=== PATIENT | female | born 1980 | race Caucasian/White ===

== ENCOUNTER 2025-02-17 11:01 | Outpatient (OUT) | payer MEDICARE, SELFPAY ==
--- OUTSIDE RECORDS SUMMARY | 2024-07-17 12:05 | XMS_ITS ---
Author Organization [facility] Servic es Address [address] [place] [address] Care Team Providers Care Database Modeler Name Role Phone Ruthie Samuel Primary Care Provider [phone] Dr. Toñito Lizarraga [facility] [phone] REASON FOR VISIT FILLING Encounters Encounter Location Date Provider Diagnosis [facility] [address] [place] [address] 07/17/2024 Toñito Lizarraga Plan Of Treatment No Information Progress Notes * SKYE SALESOB:05/1979 (45 yo F)Acc No.[id number]:07/17/2024 Patient: Danielle HILTONMILANRAYMONDY Provider: Rm Lizarraga DDS :1980 A ge:44 Y S ex:Female Date:07/17/2024 Address:[facility] [address], [place] [id number] Pcp:Ruthie Samuel Subjective: * Chief Complaints: * 1 . FILLING. * Medical History: Objective: * Vitals: Assessment: Plan: * Treatment: * Images: * Electronic signature of Dr. Toñito Lizarraga , DMD on 02/17/2025 at 11:13 AM EDT Sign off status: Pending * Provider: Rm Lizarraga DDS Date: 07/17/2024 Generated for Printi ng/Faxing/eTransmitting on: 1 11:13 AM EDT
--- OUTSIDE RECORDS SUMMARY | 2024-08-14 07:50 | XMS_ITS ---
Author Organization [facility] Servic es Address [address] [place] [address] Care Team Providers Care Craps Dealer Name Role Phone Ruthie Samuel Primary Care Provider [phone] Dr. Toñito Lizarraga [facility] [phone] REASON FOR VISIT FILLING Encounters Encounter Location Date Provider Diagnosis [facility] Services [address] [place] [address] 08/14/2024 Toñito Lizarraga Plan Of Treatment No Information Progress Notes * SKYE SALESOB:05/1979 (45 yo F)Acc No.[id number]:08/14/2024 Patient: Danielle HILTONMILANRAYMONDY Provider: Rm Lizarraga DDS :1980 A ge:44 Y S ex:Female Date:08/14/2024 Address:[facility] [address], [id number] Pcp:Ruthie Samuel Subjective: * Chief Complaints: * 1 . FILLING. * Medical History: Objective: * Vitals: Assessment: Plan: * Treatment: * Images: * Electronic signature of Dr. Toñito Lizarraga , DMD on 02/17/2025 at 11:13 AM EDT Sign off status: Pending * Provider: Rm Lizarraga DDS Date: 08/14/2024 Generated for Printi ng/Faxing/eTransmitting on: 1 11:13 AM EDT
--- OUTSIDE RECORDS SUMMARY | 2024-10-15 11:00 | XMS_ITS ---
Author Organization [facility] Servic es Address [address] [place] [address] Care Team Providers Care Manager Oracle Name Role Phone Ruthie Samuel Primary Care Provider Komal Russell [phone] REASON FOR VISIT PROPHY Encounters Encounter Location Date Provider Diagnosis [facility] Services [address] [place] [address] 10/15/2024 Komal Russell Plan Of Treatment No Information Progress Notes * SKYE SALESOB:05/1979 (45 yo F)Acc No.[id number]:10/15/2024 Patient: Danielle ARTHUR EDGAR Provider: Danielle Russell :1980 A ge:44 Y S ex:Female Date:10/15/2024 Address:[facility] [address] [id number] Pcp:Ruthie Samuel Subjective: * Chief Complaints: * 1 . PROPHY. * Medical History: Objective: * Vitals: Assessment: Plan: * Treatment: * Images: * Electronic signature of Sukhjinder Russell on 02/17/2025 at 11:13 AM EDT Sign off status: Pending * Provider: Danielle Russell Date: 0 10/15/2024 Generated for Chioma croft/Karen/eTcarolina on: 1 11:13 AM EDT
--- OUTSIDE RECORDS SUMMARY | 2025-01-05 09:41 | XMS_ITS | Continuity of Care Document ---
Author Organization [facility] Address [address] [place] [address] Phone Care Team Providers Care Facility Operations Manager Name Role Phone Taqueria Mccullough DO Unavailable Unavailable Allergies, Adverse Reactions, Alerts Substance Reaction Status Criticality oxcarbazepine Active No Information carbamazepine Active No Information divalproex sodium Active No Informa tion Penicillins Active No Information Medications Medication Instructions Dosage Effective Dates (start - stop) Status Comments azelastine 137 mcg (0.1 %) nasal spray spray 2 spray by intranasal route 2 times every day in each nostril 274 MCG - Active fenofibrate nanocrystallized 145 mg tablet take 1 tablet by oral route every day 145 MG - Active Vitamin D3 25 mcg (1,000 unit) tablet take 1 tablet daily - Active levothyroxine 50 mcg tablet take 1 tablet by oral route every day 50 MCG - Active buspirone 10 mg tablet take 2 tablet by oral route 2 times every day 20 MG - Active Vitamin C 1,000 mg tablet - Active garlic 1,000 mg capsule - Active lamotrigine 100 mg tablet take 1 tablet by oral route every day 100 MG - Active Galzin 50 mg (zinc) capsule take 1 capsule by oral route 3 times every day on an empty stomach 50 MG - Active One Daily 27 mg iron-800 mcg tablet - Active glycopyrrolate 2 mg tablet - Active clozapine 150 mg disintegrating tablet take 1 tablet by oral route every day and place on top of the tongue where it will dissolve, then swallow 150 MG - Active Abilify 20 mg tablet take 1 tablet by oral route every day 20 MG - Active Problems Condition Type Effective Dates (start - stop) Clini mally Status Comments No Known Problems Procedures Procedure Date Ppps, subseq visit Prophylaxis Adult [employer]rit [facility] For [employer] [facility] [place] Dis Nov Oral Hygiene Instruction Moderate Risk ROUTINE VENIPUNCTURE OFFICE/OUTPATIENT VISIT, EST GLYCOSYLATED HEMOGLOBIN TEST OFFICE/OUTPATIENT VISIT, EST Prophylaxis Adult [employer] For [place] Dis May Oral Hygiene Instruction Moderate Risk OFFICE/OUTPATIENT VISIT, EST GLYCOSYLATED HEMOGLOBIN TEST OFFICE/OUTPATIENT VISIT, EST [employer] Oral Hygiene Instruction Periodic Oral Eval Estab Patient 2023 OFFICE/OUTPATIENT VISIT, EST Obtaining screen pap smear CA screen;pelvic/breast exam OFFICE/OUTPATIENT VISIT, EST OFFICE/OUTPATIENT VISIT, EST OFFICE/OUTPATIENT VISIT, EST ROUTINE VENIPUNCTURE ROUTINE VENIPUNCTURE OFFICE/OUTPATIENT VISIT, EST OFFICE/OUTPATIENT VISIT, EST Oral Hygiene Instruction Resin Composite 1s; Posterior Treatment Completed Periodic Oral Eval Estab Patient 2022 [employer] Prophylaxis Adult Low Risk Nutrit [employer] For [employer] [place] Dis Jun Oral Hygiene Instruction OFFICE/OUTPATIENT VISIT, EST ROUTINE VENIPUNCTURE Prophylaxis Adult Oral Hygiene Instruction OFFICE/OUTPATIENT VISIT, Oral Hygiene Instruction Prophylaxis Adult Oral Hygiene Instruction Periodic Oral Eval Estab Patient 2020 Panoramic Film [employer] Nutrit [employer] [place] Dis Jan OFFICE/OUTPATIENT VISIT, NEW Periodic Oral Eval Estab Patient 2016 Prophylaxis Adult [employer] Oral Hygiene Instruction Prophylaxis Adult Oral Hygiene Instruction Prophylaxis Adult Periodic Oral Eval Estab Patient 2015 Oral Hygiene Instruction Prophylaxis Adult Oral Hygiene Instruction Resin Composite 2s; Posterior 5 Resin Composite 1s; Posterior 5 Treatment Completed B[employer] Periodic Oral Eval Estab Patient 2014 Prophylaxis Adult Oral Hygiene Instruction Prophylaxis Adult Oral Hygiene Instruction Resin Composite 1s; Posterior 4 Resin Composite 1s; Posterior 4 Resin Composite 1s; Posterior 4 Prophylaxis Adult Oral Hygiene Instruction Comp Oral Eval New/estab Patient 2013 Intraoral-complete Series (bw) 14 Advance Directives Directive Yes / No Effective Date File Name No Information Encounters Encounter Description Practice Location Reason(s) For Visit Diagnoses Date Provider Providers Copied on Encounter [facility], [address] [place] [address], [id number] , [place] tel:[phone] [facility] No Information 5 Sadia Armijo. [address] [place] [address], [id number] , [place]. tel:[phone] [facility], [address] [place] [address], [id number] , [place] tel: [phone] [facility] Medicare preventive (chief complaint) Body mass index [BMI] 31.0-31.9, adultEncounter for initial preventive physical examination covered by Medicare 5 David Sifuentes. [address] [place] [address], [id number], [place]. tel: [phone] [facility], [address] [place] [address], [id number] , [place] tel: [phone] [facility] (chief complaint) Encounter for screening for dental disorders 5 Qiana Cunningham. . tel: [phone] [facility], [address] [place] [address], [id number] , [place] tel: [phone] [facility] No Information 5 David Sifuentes. [address] [place] [address], [address], [place]. tel: [phone] OFFICE/OUTPA TIENT VISIT, [facility], [address] [place] [address], [id number] , [place] tel: [phone] [facility] Wellness exam and lab draw (chief complaint)L ab draw (chief complaint) Body mass index [BMI]30.0-30.9, adultHypothyroidism (acquired)Prediabete sVitamin D deficiencyMixed hyperlipidemiaAnxiet y with depressionAdult general medical exam 5 David Sifuentes. [address] [place] [address], [address], [place]. tel: [phone] OFFICE/OUTPA TIENT VISIT, [facility], [address] [place] [address], [id number] , [place] tel: [phone] [facility] Possible UTI (chief complaint) DysuriaPrediabetesBo dy mass index [BMI] 31.0-31.9, adult 5 David Sifuentes. [address] [place] [address], [address], [place]. tel: [phone] [facility], [address] [place] [address], [id number] , [place] tel:[phone] [facility] (chief complaint) Encounter for screening for dental disordersBody mass index [BMI] 32.0-32.9, adult 5 Qiana YOUNG Marisa. . tel: [phone] OFFICE/OUTPA TIENT VISIT, [facility], [address] [place] [address], [id number] , [place] tel: [phone] [facility] Office visit (chief complaint) Body mass index [BMI] 32.0-32.9, adultHypothyroidism (acquired) 5 David Sifuentes. [address] [place] [address], [address], [place]. tel: [phone] OFFICE/OUTPA TIENT VISIT, [facility], [address] [place] [address], [id number] , [place] tel: [phone] [facility] Polydipsia 4 David Sifuentes. [address] [place] [address], [address], [place]. tel: [phone] [facility], [address] [place] [address], [id number] , [place] tel: [phone] [facility] pe (chief complaint) Encounter for screening for dental disorders 4 Qiana [facility] Marisa. . tel: [phone] OFFICE/OUTPA TIENT VISIT, [facility], [address] [place] [address], [id number] , [place] tel:[phone] [facility] annual exam (chief complaint) Encounter for gynecological examination (general) (routine) without abnormal findingsBody mass index [BMI]30.0-30.9, adult 4 Dakota Gonsalez. [address] [place] [address], [id number] , [place]. tel: [phone] OFFICE/OUTPA TIENT VISIT, [facility], [address] [place] [address], [id number] , [place] tel: [phone] [facility] office visit (chief complaint)l ab draw (chief complaint) Adult general medical examMixed hyperlipidemiaVitami n D deficiencyAnxiety with depressionHypothyroi dism (acquired)Prediabete sBody mass index [BMI]30.0-30.9, adult 4 David Sifuentes. [address] [place] [address], [address], [place]. tel: [phone] OFFICE/OUTPA TIENT VISIT, [facility], [address] [place] [address], [id number] , [place] tel: [phone] [facility] f/u BP (chief complaint) Body mass index [BMI] 32.0-32.9, adultElevated blood pressure reading 3 [place] SUSHIL Sifuentes. [address] [place] [address], [address], [place]. tel: [phone] OFFICE/OUTPA TIENT VISIT, [facility], [address] [place] [address], [id number] , [place] tel: [phone] [facility] follow up (chief complaint)L ab draw (chief complaint) Hypothyroidism (acquired)Body mass index [BMI]30.0-30.9, adultRacing heart beatElevated blood pressure reading 3 [place] SUSHIL Sifuentes. [address] [place] [address], [address], [place]. tel: [phone] OFFICE/OUTPA TIENT VISIT, [facility], [address] [place] [address], [id number] , [place] tel: [phone] [facility] Wellness Visit (chief complaint)L ab Draw (chief complaint) Body mass index [BMI] 28.0-28.9, adultEncntr for general adult medical exam w/o abnormal findingsHypothyroidi sm (acquired)Anxiety with depressionMixed hyperlipidemiaEncoun ter for screening for HIVEncounter for hepatitis C screening test for low risk patientMusculoskelet al chest pain 3 David Sifuentes. [address] [place] [address], [address], [place]. tel:[phone] OFFICE/OUTPA TIENT VISIT, [facility], [address] [place] [address], [id number] , [place] tel:+ [phone] CRISTIANO Foster c/o muscle spasms (chief complaint) Body mass index [BMI]30.0-30.9, adultMuscle ache of extremity 3 [place] SUSHIL Sifuentes. [address] [place] [address], [address], [place]. tel:[phone] [facility], [address] [place] [address], [id number] , [place] tel:+ [phone] [facility] filling (chief complaint) Encounter for screening for dental disorders 3 Qiana YOUNG Marisa. . tel:[phone] [facility], [address] [place] [address], [id number] , [place] tel: [phone] [facility] Adult prophy (chief complaint) Encounter for screening for dental disorders 3 Qiana YOUNG Marisa. . tel:+ [phone] OFFICE/OUTPA TIENT VISIT, [facility], [address] [place] [address], [id number] , [place] tel:+ [phone] [facility]ian F/U 6 Month (chief complaint)L ab Draw (chief complaint) Hypothyroidism (acquired)History of Erb's palsyBody mass index [BMI] 26.0-26.9, adult 2 David Sifuentes. [address] [place] [address], [address], [place]. tel:[phone] [facility], [address] [place] [address], [id number] , [place] tel:+ [phone] [facility] prophy (chief complaint) Encounter for screening for dental disorders 2 Clari Delgado. [address] [place] [address], [address], [place]. tel:[phone] OFFICE/OUTPA TIENT VISIT, [facility], [address] [place] [address], [id number] , [place] tel: [phone] [facility] Cristian est care (chief complaint)l abs (chief complaint) Hypothyroidism (acquired)Body mass index [BMI] 28.0-28.9, adultSchizophrenia, chronic conditionAnxiety with depressionMixed hyperlipidemiaSialor rheaEncounter to establish careVitamin D deficiency 2 David Sifuentes. [address] [place] [address], [address], [place]. tel: [phone] [facility], [address] [place] [address], [id number] , [place] tel: [phone] [facility] Prophy (chief complaint) Encounter for screening for dental disorders 1 Eb Lovell. [address] [place] [address], [id number] , [place]. tel: [phone] [facility], [address] [place] [address], [id number] , [place] tel: [phone] [facility] DN (chief complaint) Encounter for screening for dental disorders 1 Romeo Peres. [address] [place] [address], [address], [place]. tel: [phone] OFFICE/OUTPA TIENT VISIT, [facility], [address] [place] [address], [id number] , [place] tel: [phone] [facility] [place] est care (chief complaint) Anxiety with depressionSchizophre estefania, chronic conditionDyslipidemi a, goal LDL below 100Hypothyroidism (acquired)Encounter to establish care with new doctor 0 Lindsay Ferrer. [address] [place] [address], [id number] , [place]. tel: [phone] [facility], [address] [place] [address], [id number] , [place] tel: [phone] [facility] prophy (chief complaint) Encounter for screening for dental disorders 7 Jennifer Ruddy. [address], [place], [id number] , [place]. tel: [phone] [facility], [address], [place], [id number] , [place] tel: [phone] [facility] prophy (chief complaint) Encounter for screening for dental disorders 7 [facility] [place]. [address] [facility], [place], [address], [place]. tel: [phone] [facility], [address], [place], [id number] , [place] tel: [phone] [facility] PROPHY (chief complaint) Encounter for screening for dental disorders 6 [facility]. [address], [place], [id number] , [place]. tel: [phone] [facility], [address], [place], [id number] , [place] tel: [phone] [facility] prophy (chief complaint) Encounter for screening for dental disorders [facility]. [address], [place], [id number] , [place]. tel: [phone] [facility], [address], [place], [id number] , [place] tel: [phone] Dental Clinic Dental examination [facility]. [address], [place], [id number] , [place]. tel: [phone] [facility], [address], [place], [id number] , [place] tel: [phone] [facility] Clinic prophy (chief complaint) Dental examination [facility]. [address], [place], [id number] , [place]. tel: [phone] [facility], [address] [place] [address], [id number] , [place] tel: [phone] [facility] Clinic Dental examination 5 [facility]. [address], [place], [id number] , [place]. tel: [phone] [facility], [address] [place] [address], [id number] , [place] tel: [phone] [facility] Clinic Dental examination 4 [facility]. [address], [place], [id number] , [place]. tel: [phone] [facility], [address] [place] [address], [id number] , [place] tel: [phone] Dental Clinic Dental examination 4 [facility]. [address], [place], [id number] , [place]. tel: [phone] [facility], [address] [place] [address], [id number] , [place] tel: [phone] [facility] Dental examination 4 [facility]. [address], [place], [id number] , [place]. tel: [phone] [facility], [address] [place] [address], [id number] , [place] tel: [phone] [facility] Clinic Dental examination 4 [facility]. [address], [place], [id number] , [place]. tel: [phone] Family History Family Member Type Diagnosis Age At Onset Problem Family history unknown Immunizations Vaccine Date Status Comments COVID-19, mRNA, LNP-S, PF, 5 0 mcg/0.5 mL administered Source: Other Regist ry influenza, injectable, quadr ivalent, preservative free administered Source: Other Regist ry COVID-19, mRNA, LNP-S, bival ent booster, PF, 30 mcg/0.3 mL dose administered Source: Other Registry Influenza, injectable, MDCK, preservative free, quadrivalent administered Source: Other Registry influenza, recombinant, quadrivalent,injectable, preservative free administered Source: Other Regist ry influenza, injectable, quadr ivalent, preservative free administered Source: Other Regist ry influenza, recombinant, quadrivalent,injectable, preservative free administered Source: Other Regist ry influenza, injectable, quadr ivalent, preservative free administered Source: Other Regist ry influenza, live, intranasal, quadrivalent administered Source: Other Regist ry influenza, injectable, quadrivalent admin istered Source: Other Registry influenza, injectable, quadr ivalent, preservative free administered Source: Other Regist ry influenza, injectable, quadr ivalent, preservative free administered Source: Other Regist ry Influenza, seasonal, injectable administe red Source: Other Registry Payers Payer name Insurance type Covered republican ID Authoriza tidali(s) Medicare PPS MB [id number] Grange Whittaker CI [id number] Social History Type Description Quantity Date Captured Comments Alcohol Use Details Unknown Caffeine Use Details Unknown Tobacco Use Status No Information Smoking Status No Information Sex Female Sexual Orientation Straight or heterosexual Gender Identity Female Chief Complaint And Reason For Visit No Information Reason For Referral Reason For Referral No Information Plan Of Treatment Date Type Action Status Goal Hep A. Due on du e Goal Hepatitis C screening. Due o n due Goal Lipid panel. Due on 030 due Goal RLP. Due on due Goal Tdap. Due on due Goal Depression screening. Due on due Goal Influenza vaccine. Due on Oc due Goal Unhealthy drug use screening . Due on due Goal PRAPARE ASSESSMENT. Due on A due Goal HPV. Due on due Goal Tdap Vaccine. Due on 2024 due Goal Tdap Vaccine. Due on 2024 due Goal Unhealthy drug use screening . Due on due Goal Influenza vaccine. Due on Oc due Goal Depression screening. Due on due Goal Lipid panel. Due on due Goal Tdap. Due on due Goal PRAPARE ASSESSMENT. Due on A due Goal Hepatitis C screening. Due o n due Goal RLP. Due on due Goal HPV. Due on due Goal Lifestyle education regardin g diet completed Goal HPV. Due on due Goal RLP. Due on due Goal Tdap Vaccine. Due on 2024 due Goal Tdap. Due on due Goal Lipid panel. Due on due Goal Depression screening. Due on due Goal Hep A. Due on du e Goal Hepatitis C screening. Due o n due Goal PRAPARE ASSESSMENT. Due on due Goal Unhealthy drug use screening . Due on due Goal Influenza vaccine. Due on Oc due Goal Hep A. Due on du e Goal HPV. Due on due Goal PRAPARE ASSESSMENT. Due on due Goal Influenza vaccine. Due on Oc due Goal Hepatitis C screening. Due o n due Goal Tdap Vaccine. Due on 2024 due Goal Tdap. Due on due Goal Unhealthy drug use screening . Due on due Goal Depression screening. Due on due Goal RLP. Due on due Goal Lipid panel. Due on due Goal Depression screening. Due on due Goal Unhealthy drug use screening . Due on due Goal Lipid panel. Due on 029 due Goal PRAPARE ASSESSMENT. Due on due Goal Influenza vaccine. Due on due Goal Tdap. Due on due Goal Hepatitis C screening. Due o n due Goal Tdap Vaccine. Due on 2024 due Goal HPV. Due on due Goal RLP. Due on due Goal Dietary manageme nt education, guidance, and counseling completed Goal Hep A. Due on du e Goal Tdap Vaccine. Due on 2024 due Goal HPV. Due on due Goal Unhealthy drug use screening . Due on due Goal Tdap. Due on due Goal RLP. Due on due Goal Hepatitis C screening. Due o n due Goal PRAPARE ASSESSMENT. Due on A due Goal Influenza vaccine. Due on Oc due Goal Lipid panel. Due on due Goal Depression screening. Due on due Goal Dietary manageme nt education, guidance, and counseling completed Goal Hepatitis C screening. Due o n due Goal Tdap Vaccine. Due on 2024 due Goal Unhealthy drug use screening . Due on due Goal RLP. Due on due Goal PRAPARE ASSESSMENT. Due on due Goal Influenza vaccine. Due on due Goal Depression screening. Due on due Goal Tdap. Due on due Goal HPV. Due on due Goal Lipid panel. Due on due Goal Dietary manageme nt education, guidance, and counseling completed Goal Lipid panel. Due on due Goal Hep A. Due on du e Goal HPV. Due on due Goal Hepatitis C screening. Due o n due Goal RLP. Due on due Goal Depression screening. Due on due Goal PRAPARE ASSESSMENT. Due on due Goal Unhealthy drug use screening . Due on due Goal Tdap. Due on due Goal Influenza vaccine. Due on due Goal Tdap Vaccine. Due on 2024 due Goal Dietary manageme nt education, guidance, and counseling completed Goal Hep A. Due on du e Goal Tdap. Due on due Goal Influenza vaccine. Due on Oc due Goal PRAPARE ASSESSMENT. Due on D due Goal Tdap Vaccine. Due on 2023 due Goal Hepatitis C screening. Due o n due Goal Lipid panel. Due on due Goal Depression screening. Due on due Goal RLP. Due on due Goal Unhealthy drug use screening . Due on due Goal HPV. Due on due Goal Hep A. Due on du e Goal Depression screening. Due on due Goal Tdap. Due on due Goal Tdap Vaccine. Due on 2023 due Goal Hepatitis C screening. Due o n due Goal PRAPARE ASSESSMENT. Due on O due Goal Influenza vaccine. Due on due Goal RLP. Due on due Goal Lipid panel. Due on due Goal HPV. Due on due Goal Unhealthy drug use screening . Due on due Goal Influenza vaccine. Due on due Goal HPV. Due on due Goal Unhealthy drug use screening . Due on due Goal PRAPARE ASSESSMENT. Due on due Goal RLP. Due on due Goal Depression screening. Due on due Goal Tdap Vaccine. Due on 2023 due Goal Hepatitis C screening. Due o n due Goal Lipid panel. Due on due Goal Tdap. Due on due Goal Hep A. Due on du e Goal Hepatitis C screening. Due o n due Goal Unhealthy drug use screening . Due on due Goal Tdap. Due on due Goal RLP. Due on due Goal HPV. Due on due Goal Lipid panel. Due on due Goal Depression screening. Due on due Goal Tdap Vaccine. Due on 2023 due Goal Influenza vaccine. Due on due Goal PRAPARE ASSESSMENT. Due on due Goal Dietary manageme nt education, guidance, and counseling completed Goal Lipid panel. Due on due Goal Unhealthy drug use screening . Due on due Goal Tdap. Due on due Goal PRAPARE ASSESSMENT. Due on due Goal Influenza vaccine. Due on Oc due Goal Depression screening. Due on due Goal HPV. Due on due Goal Tdap Vaccine. Due on 2022 due Goal Hepatitis C screening. Due o n due Goal RLP. Due on due Goal Dietary manageme nt education, guidance, and counseling completed Goal Influenza vaccine. Due on Oc due Goal Hepatitis C screening. Due o n due Goal Depression screening. Due on due Goal Unhealthy drug use screening . Due on due Goal Lipid panel. Due on due Goal Tdap. Due on due Goal Tdap Vaccine. Due on 2022 due Goal RLP. Due on due Goal HPV. Due on due Goal PRAPARE ASSESSMENT. Due on due Goal Dietary manageme nt education, guidance, and counseling completed Goal Lipid panel. Due on due Goal Tdap. Due on due Goal RLP. Due on due Goal Hep A. Due on du e Goal Tdap Vaccine. Due on 2022 due Goal Influenza vaccine. Due on Oc due Goal PRAPARE ASSESSMENT. Due on M 3 due Goal Depression screening. Due on due Goal Dietary manageme nt education, guidance, and counseling completed Goal Depression screening. Due on due Goal Tdap. Due on due Goal RLP. Due on due Goal Influenza vaccine. Due on due Goal Tdap Vaccine. Due on 2022 due Goal Lipid panel. Due on due Goal PRAPARE ASSESSMENT. Due on due Goal Dietary manageme nt education, guidance, and counseling completed Goal PRAPARE ASSESSMENT. Due on due Goal Lipid panel. Due on due Goal Tdap Vaccine. Due on 2022 due Goal Depression screening. Due on due Goal RLP. Due on due Goal Tdap. Due on due Goal Influenza vaccine. Due on due Goal Lipid panel. Due on due Goal Depression screening. Due on due Goal Tdap Vaccine. Due on 2022 due Goal Tdap. Due on due Goal RLP. Due on due Goal PRAPARE ASSESSMENT. Due on due Goal Influenza vaccine. Due on due Goal PRAPARE ASSESSMENT. Due on N due Goal RLP. Due on due Goal Lipid panel. Due on due Goal Depression screening. Due on due Goal Tdap. Due on due Goal Influenza vaccine. Due on due Goal Lifestyle education regardin g diet completed Goal Lipid panel. Due on due Goal Depression screening. Due on due Goal RLP. Due on due Goal Tdap. Due on due Goal Influenza vaccine. Due on due Goal Weight-reducing diet educati on completed Appointment Jessica Banegas BOOKED Appointment Jessica Banegas BOOKED History Of Present Illness Encounter Date Complaint History Of Prese nt Illness Medicare preventive The client h as not felt depressed and has had interest and pleasure doing things recently. Functional Status: (Functional status has not changed) on 01/04/2025. SLUMS assessment completed, with a total score of 23, Mild Neurocognitive Disorder. Cognitive Status: (Cognitive status has not changed) on 01/04/2025. The ''Up and Go'' test took less than 30 seconds, butthe client needs help with activities of daily living. The client is not at risk for falls. The client has not fallen in the last year. The fall(s) did not result in injury. Client's activity level is moderate. Client exercises daily. The client has smoke detectors, firearms, carbon monoxide detectors, electric heating in the home. There is no radon in the client's home. Client reports using a seatbelt in vehicles. Client does not take calcium. Client reports taking Vitamin D. Client reports taking a multivitamin. Client reports taking folic acid. Relevant history is negative for passive vaping exposure, passive smoke exposure and alcohol use. Client is a former tobacco user. In the past year the client has had 4 or more drinks in a day 0 time(s). MARGARET ROBLES Wellness exam and lab draw [facility] for annual wellness exam and lab draw. Mammogram done 03/2024. Last pap done 10/2023. Denies other problems/concerns. Leanne Adame noted. Continues seeing Dr Finn at [facility] for psychiatry. No counseling services. Started buspirone again due to increase in anxiety. Feeling better now. States tries to watch diet and eat healthy. Does exercise daily. WILDER Heard Lab draw Lab draw from le ft hand x 1 attempt, tolerated well, pressure dressing to area. Leanne Bennett RN Possible UTI Presents with c/ o possible UTI. Reports urgency, frequency, and pain. Symptoms for 3-4 weeks. States she has been drinking a lot cranberry juice, water and lemonade. Leanne Adame noted. States symptom onset approx 1 month now. States progressively gotten worse. Feels warm and nauseated prior to urinating. Denies burning; but states abdominal painful while urinating. Has been incontinent. Patient denies any fever/chills. Has been getting up 1x/night. Age 22yrs had bad kidney infection. On levaquin for long time. States had stents in bladder after removing ovaries after hyst. Had a cath and trouble making bladder work. Age 40yrs. Saw urology in follow-up after. No longer has menses. No vaginal discharge. No change in meds except stopped buspirone approx 1 month ago. WILDER Heard margaret robles Office visit Pt here today fo r 6 month f/u. Voices no issues or concerns at this time. Allan. Above noted. Here for routine follow-up. Denies nay issues or concerns except states has a small skin tag to right buttocks she is interested in removing. Also verbalizes concern for cost of medications; more her psych meds. Looked up meds using goodrx and coupon provided to patient. Continues under care with Dr Keen, psychiatry- no changes with meds. No counseling services. Has not had any recent hospitalizations. [facility] completed 10/2023WILDER Heard pe pe annual exam The client does not drink alcohol. Additional information: Patient is here to establish care. She has had a hysterectomy and they also took her ovaries. she does get some hot flashes, but they are starting to improve. 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 . lab draw Labs obtained fernandez ccessfully x1 attempt in L hand. Pt tolerated well. Voices no complaints at this time. -Sola. office visit Pt here today fo r 6 month f/u and lab draw. Voices no other issues or concerns at this time. -Sola. Above noted. Here for routine wellness exam with lab draw and med refills.Continues under care with Dr Keen, psychiatry- no changes with meds. No counseling services. Has not had any recent hospitalizations. Mammogram-[facility] in [place] left; had full hyster age 41yrs was on hormone replacement but quit due to messing with mental health. Feeling better overall. WILDER Heard f/u BP Presents for f/u BP, states she has cut back on caffeine intake. Leanne Adame noted. Seen few weeks ago and had concerns of slightly elevated blood pressure with c/o heart racing. TSH level checked with normal readings. Patient had admitted to increased anxiety. Here today to recheck symptoms. [facility] psychiatry provider Dr Bailey recently increased her lamotrigine due to increased anxiety/depression. States she is now feeling much better. No longer having any feelings of heart racing and has significantly cut back on caffeine as advised. Has no issues/concerns today. WILDER Heard Lab draw Lab draw from le ft forearm x 1 attempt, tolerated well, pressure dressing to area. Leanne Bennett RN follow up Presents for f/u thyroid. Pt started taking some more supplements and is feeling better, quit taking Prilosec due to symptoms resolved. Concerned about gradual weight gain, states no change in diet and has been exercising. Leanne Adame noted. Here for routine 6 mon f/u with med refills. Voiced few concerns today. Has gained 13 pounds since last seen approx 6 months ago. States last week she noticed increase in heart racing. Denies any chest pain; but felt uncomfortable and noticed it beating fast. Has BP machine at home; took BP past 2 days and obtained reading of 160's systolic yesterday. Noticed feeling heart to race more after eating. States she was drinking a lot of caffeine daily; had used an energy diaz powder placed in water. States it has caffeine and vitamins in it. Stopped drinking it the past few days and noticed some resolution of heart racing. Had very mild episode yesterday. Significant other in room with patient; states she does get easily anxious. States even if her phone rings she feels anxious. Does continue under care with [facility] psychiatry. Denies any change in medications. WILDER Heard Lab Draw RN attempted lab draw x1 in left hand, unsuccessful. Provider obtained labs successfully x1 attempt on left forearm. Pt tolerated well. Pressure dressing applied to both sites. Krystyna Wellness Visit Pt here for well ness visit. She states she has been having pain in her rib cage and bilateral shoulder blades. Pain has been going on for about 1 month. Other than that, no complaints today. Will need med refills. Alesia noted. Here for lab draw with wellness visit. Had d/cd her statin due to complaints of muscle pain 3 months ago. States over the past month has developed pain across chest and into shoulders. Describes as intermittent, achy. Hx of feleing increased HR; but that has improved with her diet improvement. Denies any shortness of breath or breaking out into sweat. Did extra movement; dancing around time it started, unsure if related. Denies pain today. Has not attempted any pain relief measures. 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 Pt states she want to discuss getting off Atorvastatin d/t the spasms. Pt denies any other issues or concerns. Deep Stevens noted. Approx 3 weeks ago developed severe achyness in bilateral arms and legs; right leg worse. States pain is improved now; when she made appt last week it was more severe. Thought it might be caused from her statin use. Has been taking Atorvastatin since 2016. States at the time she was eating very unhealthy. Denies any other issues/concerns. WILDER Heard filling filling Adult prophy Adult Prophy Lab Draw Labs drawn from left hand on second attempt. Patient tolerated well.//Dasia RODRÍGUEZ F/U 6 Month Here for 6 month follow-up. Dental: 12/15/2021Mammogram: Scheduled 09 April 2022Flu: Up to Date//Dasia Adame noted. States she is feeling good. Has lost over 10 pounds. Tries to eat healthier and is working out at least 3 days/week. Taking her medication as prescribed; denies any concerns. Continues with Dr Keen for psychiatry; no change in medications. Denies any recent illness or hospitalizations. Requests mammogram to be [facility] to [facility]. Is interested in establishing care for woman's health; does not want to drive to [place] for exam any longer. Will call to make appt later. Influenza and COVID vaccine obtained approx 1 month ago. Félix HDZ prophy prophy labs Lab drawn from l eft AC x1 attempt successful.Rand Lopez RN est care Presents for est ablishing care. Was seeing Dr. Browning before but would not like to continue with her anymore. Sees the health dept for dental. Sees a psychiatrist at [facility] and dr. Antonio in [place]. States she has already seen BANK CREDIT CARD COLLECTION CLERK this year. States she had [place] [facility] Needs medication refills on all medications not prescribed by Psychiatrist. List provided.Rand Adame noted. Last seen provider in January. Requests refills of medication; on levothryoxine for hypothyroidism; atorvastatin for elevated cholesterol, and Vitamin D. Also requesting refill of glycopyrrolate. States normally prescribed by psych provider, Dr Keen, for excessive nighttime drooling secondary to her psych medications. Next appt with him is in October, normally sees every 3 months. Has hospice case manager, Jacinda. Also participates in group therapy at [facility]. Dx with schizoaffective disorder, anxiety, depression. Previous surgery includes gallbladder, wisdom teeth. States this past April had ovary removed. Did have some complications and had moya catheter in place for over 1 week. No longer having any problems. No heart or lung issues. Does have some intermittent abd cramping and nausea. Takes omeprazole. States she feels she has some arthritis; will occasionally have joint pain. Denies hx of lower back injury, but states she has sciatic pain in lower back. Onset after epidural from her son's . 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 Had reconstructive surgery to right arm where muscle taken from lower part of arm was inserted into upper arm. Continues with limited ROM and strength to right arm. Also has some atrophy to the muscles in that arm. Able to function without much problems and drive vehicle. [facility], has orderFélix, WILDER Prophy DEL MATHIS est care Pt here to [facility]. Pt denies any issues or concerns. ANNE Stevens Pt's last visit with PCP Isabell Herndon was 02/01/20.Last labs- 03/17/[address] Brown. States this summer her cholesterol and thyroid were checked after a 1 visit and they were both in good range at that time.Psych physician- Denies any recent medication changes. Specialists: NONEADOPTED, family history unknown.Last Eye Exam-Dentist- switched from Baldomero Atkins to Piyush Rodriges. but cancelled recent appointment as she's afraid of Covi-19 exposure. Denies any pain, infection, broken teeth complaints, just some discoloration on front bottom between teeth. She does drink a lot of tea. 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 History of hysterectomy. Currently lives with elderly parents.Will need refills on levothyroxine, fenofibrate, atorvastatin. prophy prophy PROPHY prophy has flu shot prophy Functional Status Date Functional Assessmen t No Information Instructions Date Instruction Additional Infor emery 1. F/U annually for wellness vis it Related to Encounter for initial preventive physical examination covered by Medicare Counseled on weight reduction Giving encouragement to exercise Related to Body mass index [BMI] 31.0-31.9, adult Lifestyle education regarding di et Related to Body mass index [BMI] 31.0-31.9, adult 1. F/U annually for wellness visit2. Labs completed today, will call with results; call if no communication within 1-2 weeks. Related to Adult general medical exam 1. Continue with erica atment plan as per [facility] counseling and recovery2. If you have any thoughts of harming yourself or others; go to the ER or: -Call [phone] (available 10/12)-Crisis Text Line (available 10/12) text 4HOPE to [phone]-Hfywciofm Hope Line (available 8a-Midnight) Call [phone] ([phone]) Related to Anxiety with depression 1. Labs today to ass ess lipids2. Make dietary changes3. Increase exercise4. Stop smoking/avoid smoke Related to Mixed hyperlipidemia 1. Labs obtained gianluca noyola, will call with results2. Take levothyroxine in morning upon awakening, on empty stomach; avoid eating or taking any other medication for approx 30-60 min after taking. Related to Hypothyroidism (acquired) Giving encouragement to exercise Related to Body mass index [BMI] 30.0-30.9, adult Dietary management e ducation, guidance, and counseling Related to Body mass index [BMI] 30.0-30.9, adult 1. Urine sent to lab ; will call with results2. Return in 1 week for f/u if symptoms persist3. Go to ER for any urinary retention or severe abd or flank pain Related to Dysuria Dietary management e ducation, guidance, and counseling Related to Body mass index [BMI] 31.0-31.9, adult Giving encouragement to exercise Related to Body mass index [BMI] 31.0-31.9, adult Dietary management e ducation, guidance, and counseling Related to Body mass index [BMI] 32.0-32.9, adult Giving encouragement to exercise Related to Body mass index [BMI] 32.0-32.9, adult 1. Continue current treatment plan2. Take levothyroxine in morning upon awakening, on empty stomach; avoid eating or taking any other medication for approx 30-60 min after taking.3. F/u in 6 months Related to Hypothyroidism (acquired) Dietary management e ducation, guidance, and counseling Related to Body mass index [BMI] 32.0-32.9, adult 1. A1C today2. Decre ase conc sweets and excessive carbohydrates.3. Stop/decrease smoking Related to Polydipsia Encouraged monthly B SE. Recommend calcium 1000mg QD. Encouraged good dietary intake and exercise. Laboratory specimens sent to lab. Patient to call in 2 weeks if desires results. Related to Encounter for gynecological examination (general) (routine) without abnormal findings Giving encouragement to exercise Related to Body mass index [BMI] 30.0-30.9, adult Dietary needs education Related to Body mass index [BMI] 30.0-30.9, adult 1. Continue daily me ds2. Make dietary changes3. Increase exercise4. Stop smoking/avoid smoke5. Lipid panel today Related to Mixed hyperlipidemia 1. Continue with erica atment plan as per [facility] counseling and recovery2. If you have any thoughts of harming yourself or others; go to the ER or: -Call (available 10/12)-Crisis Text Line (available 10/12) text 4HOPE to [phone]-Hfzioffux Hope Line (available 8a-Midnight) Call [phone] ([phone]) Related to Anxiety with depression 1. Checking A1C leve l2. Decrease conc sweets and excessive carbohydrates.3. Stop/decrease smoking Related to Prediabetes 1. Labs obtained gianluca noyola, will call with results2. Take levothyroxine in morning upon awakening, on empty stomach; avoid eating or taking any other medication for approx 30-60 min after taking. Related to Hypothyroidism (acquired) 1. Take daily vitamin d Related to Vitamin D deficiency 1. F/U annually for wellness visit2. Labs completed today, will call with results; call if no communication within 1-2 weeks. Related to Adult general medical exam Giving encouragement to exercise Related to Body mass index [BMI] 30.0-30.9, adult Dietary management e ducation, guidance, and counseling Related to Body mass index [BMI] 30.0-30.9, adult 1. Call if any chest pain or feelings of heart racing2. Go to ER for any sustained chest pain/palpitations. Related to Elevated blood pressure reading Giving encouragement to exercise Related to Body mass index [BMI] 32.0-32.9, adult Dietary management e ducation, guidance, and counseling Related to Body mass index [BMI] 32.0-32.9, adult 1. Labs obtained tojennifer noyola, will call with results2. Take levothyroxine in morning upon awakening, on empty stomach; avoid eating or taking any other medication for approx 30-60 min after taking. Related to Hypothyroidism (acquired) 1. Reduce sodium and eat a Heart Healthy diet (less than 300mg cholesterol/day) or DASH diet2. Exercise moderate intensity at least 30 min/day for 5 days/week3. Check Blood pressure at home and keep a log4. No smoking/Avoid smoke exposure5. Limit alcohol intake6. Follow-up in 2 weeks Related to Elevated blood pressure reading 1. Decrease caffeine intake2. Go to ER for any sustained chest pain/palpitations or shortness of breath3. F/U in 2 weeks Related to Racing heart beat Giving encouragement to exercise Related to Body mass index [BMI] 30.0-30.9, adult Dietary management e ducation, guidance, and counseling Related to Body mass index [BMI] 30.0-30.9, adult 1. Use NSAIDs as nee ded for pain2. Call if symptoms worsen or increase3. Go to ER for any sustained chest pain; palpitations or shortness of breath Related to Musculoskeletal chest pain 1. F/U annually for wellness visit2. Labs completed today, will call with results; call if no communication within 1-2 weeks. Related to Encntr for general adult medical exam w/o abnormal findings 1. Labs obtained tojennifer noyola, will call with results2. Take levothyroxine in morning upon awakening, on empty stomach; avoid eating or taking any other medication for approx 30-60 min after taking. 3. F/U in 6 months Related to Hypothyroidism (acquired) 1. Continue with erica atment plan as per [facility] counseling and recovery2. Call hotline number at if needed or go immediately to ER for any suicidal ideations Related to Anxiety with depression 1. Lipid panel today , will call with results2. Make dietary changes3. Increase exercise4. Stop smoking/avoid smoke5. Anticipate recheck 6-12 months Related to Mixed hyperlipidemia Giving encouragement to exercise Related to Body mass index [BMI] 28.0-28.9, adult Dietary management e ducation, guidance, and counseling Related to Body mass index [BMI] 28.0-28.9, adult 1. Increase fluids2. Wean off atorvastatin3. F/U in 2-3 months for lab draw4. Call if continued symptoms to be seen sooner Related to Muscle ache of extremity Giving encouragement to exercise Related to Body mass index [BMI] 30.0-30.9, adult Dietary management e ducation, guidance, and counseling Related to Body mass index [BMI] 30.0-30.9, adult 1. Take levothyroxin e in morning upon awakening, on empty stomach; avoid eating or taking any other medication for approx 30-60 min after taking. 2. Anticipate recheck in 6 months at annual wellness visit Related to Hypothyroidism (acquired) Giving encouragement to exercise Related to Body mass index [BMI] 26.0-26.9, adult Lifestyle education regarding di et Related to Body mass index [BMI] 26.0-26.9, adult 1. Call for any issues/concerns Related to Encounter to establish care [facility]. [facility] anticipate call within 1-2 weeks Related to Vitamin D deficiency 1. Continue with erica atment plan as per [facility] counseling and recovery2. Call hotline number at if needed or go immediately to ER for any suicidal ideations Related to Anxiety with depression 1. Continue daily st atin2. Make dietary changes3. Increase exercise4. Stop smoking/avoid smoke5. Lipid panel today with labs; will call with results and then refill medications6. F/U in 6 months Related to Mixed hyperlipidemia 1. Labs obtained tojennifer ay, will call with results2. Take levothyroxine in morning upon awakening, on empty stomach; avoid eating or taking any other medication for approx 30-60 min after taking. Related to Hypothyroidism (acquired) Weight-reducing diet education R elated to Body mass index [BMI] 28.0-28.9, adult Giving encouragement to exercise Related to Body mass index [BMI] 28.0-28.9, adult Assessments Type Assessment Date No Information Patient Care Teams Name Effective Dates (start - stop) Status Members No Information
--- OUTSIDE RECORDS SUMMARY | 2025-02-17 11:13 | XMS_ITS | Patient Health Record ---
Author Organization [facility] es Address [address] [place] [address] Care Team Providers Care Mail Caller Name Role Phone Ruthie Samuel Primary Care Provider [phone] Toñito Lizarraga Unavailable [phone] Komal Russell Unavailable [phone] Reason For Referral No Information Encounters Encounter Location Date Provider Diagnosis [facility] [address] [place] [address] 06/04/2024 Ruthie Samuel Encounter for dental examination and cleaning with abnormal findings Z01.21 and Other dental procedure status Z98.818 Assessments Encounter Date Diagnosis (ICD Code) Assessment Notes Treatment Notes Treatment Clinical Notes Section Notes 06/04/2024 Encounter for dental examination and cleaning with abnormal findings (ICD-10 - Z01.21) 06/04/2024 Other dental procedure status (ICD-10 - Z98.818) Plan Of Treatment No Information
[2025-02-17 11:40] LABS: Hematocrit 43.0 % (36.0-48.0); Hemoglobin 14.5 g/dL (12.0-16.0); Immature Granulocytes Abs Auto 0.01 10^3/uL (0.00-0.03); Immature Granulocytes Pct Auto 0.2 % (0.0-0.5); Lymphocytes Absolute Auto 2.1 10^3/uL (1.2-3.8); Mean Corpuscular HGB Conc 33.7 g/dL (29.9-35.2); Mean Corpuscular Hemoglobin 30.0 pg (26.7-34.0); Mean Corpuscular Volume 89.0 fL (81.0-99.0); Platelet Count 274 10^3/uL (150-450); Red Blood Count 4.83 10^6/uL (4.20-5.40); White Blood Count 5.9 10^3/uL (4.0-11.0)
== END 2025-02-17 11:02 | disposition home or self-care (01) ==
LOC: LAB 11:12
PROVIDERS: PCP Nurse Practitioner; Visit Provider Psychiatry & Neurology Psychiatry
DX: F25.0 Schizoaffective disorder, bipolar type (principal)
CPT/HCPCS: 36415; 85025

== ENCOUNTER 2025-03-17 17:06 | Emergency (ER) | payer MEDICARE, SELFPAY ==
--- OUTSIDE RECORDS SUMMARY | 2024-02-10 09:30 | XMS_ITS ---
Author Organization [facility] Servic es Address [address] [place] [address] Care Team Providers Care Yarn Salvager Name Role Phone Ruthie Samuel Primary Care Provider Alejo Jill Unavailable [phone] REASON FOR VISIT PROPHY BW EXAM Encounters Encounter Location Date Provider Diagnosis [facility] Services [address] [place] [address] 02/10/2024 Jilldaniel Dhillon Plan Of Treatment No Information Progress Notes * SKYE SALESOB:05/1979 (45 yo F)Acc No.[id number]:02/10/2024 Patient:?EHNRRY ARTHUR :?Jill DhillonDOB:1980???Age:44 Y???Sex: FemaleDate:02/10/2024hone:[phone]:[address], [place] [id number]:Ruthie Samuel Subjective: * Chief Complaints: * P ROPHY BW EXAM * Electronic signature of Jill Dhillon on 03/17/2025 at 05:14 PM EDTSign off status: Pending * Provider: Jim Dhillon Date: 0 02/10/2024 Generated for Printing/Faxing/eTransmitting on:?03/17/2025 05:14 PM EDT
--- OUTSIDE RECORDS SUMMARY | 2024-03-20 11:00 | XMS_ITS ---
Author Organization [facility] Servic es Address [address] [place] [address] Care Team Providers Care Founder Name Role Phone Ruthie Samuel Primary Care Provider [phone] Toñito Lizarraga Unavailable [phone] REASON FOR VISIT toothpain Encounters Encounter Location Date Provider Diagnosis [facility] Services [address] [place] [address] 03/20/2024 Toñito Lizarraga Plan Of Treatment No Information Progress Notes * SKYE SALESOB:05/1979 (45 yo F)Acc No.[id number]:03/20/2024 Patient:?BONGERIKAMILANRAYMONDY :?Toñito Lizarraga DDSDOB:1980???Age:44 Y???Sex: FemaleDate:4Phone:[phone]:[address], [place] [id number]:Ruthie Samuel Subjective: * Chief Complaints: * T oothpain * Electronic signature of Dr. Toñito Lizarraga , DMD, [id number] on 03/17/2025 at 05:14 PM EDTSign off status: Pending * Provider: Rm Lizarraga DDS Date: 05/20/2023 Generated for Printing/Faxing/eTransmitting on:?03/17/2025 05:14 PM EDT
--- OUTSIDE RECORDS SUMMARY | 2024-03-25 10:00 | XMS_ITS ---
Author Organization [facility] Servic es Address [address] [place] [address] Care Team Providers Care Twister In Name Role Phone Ruthie Samuel Primary Care Provider [phone] Toñito Lizarraga Unavailable [phone] REASON FOR VISIT sensitivity Encounters Encounter Location Date Provider Diagnosis [facility] Services [address] [place] [address] 03/25/2024 Toñito Lizarraga Plan Of Treatment No Information Progress Notes * SKYE SALESOB:05/1979 (45 yo F)Acc No.[id number]:03/25/2024 Patient:?ARTHUR SALES :?Toñito Lizarraga DDSDOB:1980???Age:44 Y???Sex: FemaleDate:4Phone:[phone]:[address], [place] [id number]:Ruthie Samuel Subjective: * Chief Complaints: * S ensitivity * Electronic signature of Dr. Toñito Lizarraga , DMD, [id number] on 03/17/2025 at 05:14 PM EDTSign off status: Pending * Provider: Rm Lizarraga DDS Date: 05/25/2023 Generated for Printing/Faxing/eTransmitting on:?03/17/2025 05:14 PM EDT
--- OUTSIDE RECORDS SUMMARY | 2024-07-17 12:05 | XMS_ITS ---
Author Organization [facility] Servic es Address [address] [place] [address] Care Team Providers Care Scanning Clerk Name Role Phone Ruthie Samuel Primary Care Provider [phone] Dr. Toñito Lizarraga Unavailable [phone] REASON FOR VISIT FILLING Encounters Encounter Location Date Provider Diagnosis [facility] Services [address] [place] [address] 07/17/2024 Toñito Lizarraga Plan Of Treatment No Information Progress Notes * SKYE SALESOB:05/1979 (45 yo F)Acc No.[id number]:07/17/2024 Patient:?ARTHUR SALES :?Toñito Lizarraga DDSDOB:1980???Age:44 Y???Sex: FemaleDate:07/17/2024Phone:[phone]:[address], [place]-[id number]:Ruthie Samuel Subjective: * Chief Complaints: * F ILLING * Electronic signature of Dr. Toñito Lizarraga , DMD, [id number] on 03/17/2025 at 05:14 PM EDTSign off status: Pending * Provider: Rm Lizarraga DDS Date: 0 07/17/2024 Generated for Printing/Faxing/eTransmitting on:?03/17/2025 05:14 PM EDT
--- OUTSIDE RECORDS SUMMARY | 2024-08-14 07:50 | XMS_ITS ---
Author Organization [facility] Servic es Address [address] [place] [address] Care Team Providers Care Bioinformatician Name Role Phone Ruthie Samuel Primary Care Provider [phone] Dr. Toñito Lizarraga Unavailable [phone] REASON FOR VISIT FILLING Encounters Encounter Location Date Provider Diagnosis [facility] [address] [place] [address] 08/14/2024 Toñito Lizarraga Plan Of Treatment No Information Progress Notes * SKYE SALESOB:05/1979 (45 yo F)Acc No.[id number]:08/14/2024 Patient:?ARTHUR SALES :?Toñito Lizarraga DDSDOB:1980???Age:44 Y???Sex: FemaleDate:08/14/2024Phone:[phone]:[address], [place] [id number]:Ruthie Samuel Subjective: * Chief Complaints: * F ILLING * Electronic signature of Dr. Toñito Lizarraga , DMD, [id number] on 03/17/2025 at 05:14 PM EDTSign off status: Pending * Provider: Rm Lizarraga DDS Date: 0 08/14/2024 Generated for Printing/Faxing/eTransmitting on:?03/17/2025 05:14 PM EDT
--- OUTSIDE RECORDS SUMMARY | 2024-10-15 11:00 | XMS_ITS ---
Author Organization [facility] Servic es Address [address] [place] [address] Care Team Providers Care Card Clothier Name Role Phone Ruthie Samuel Primary Care Provider Komal Russell Unavailable [phone] REASON FOR VISIT PROPHY Encounters Encounter Location Date Provider Diagnosis [facility] Services [address] [place] [address] 10/15/2024 Komal Russell Plan Of Treatment No Information Progress Notes * SKYE SALESOB:05/1979 (45 yo F)Acc No.[id number]:10/15/2024 Patient:?ARTHUR SALES :?Komal RussellDOB:1980???Age:44 Y???Sex: FemaleDate:10/15/2024Phone:[phone]:[address], [address] [place] [id number]:Ruthie Samuel Subjective: * Chief Complaints: * P ROPHY * Electronic signature of Komal Russell on 03/17/2025 at 05:15 PM EDTSign off status: Pending * Provider: Danielle Russell Date: 0 10/15/2024 Generated for Printing/Faxing/eTransmitting on:?03/17/2025 05:15 PM EDT
--- OUTSIDE RECORDS SUMMARY | 2025-03-04 07:52 | XMS_ITS | Continuity of Care Document ---
Author Organization [facility] Address [address] [place] [address] Phone Care Team Providers Care Candy Dipper Name Role Phone Maria Castro Unavailable Unavailable [...] Prophylaxis Adult [facility] [place] Dis Nov Oral Hygiene Instruction Moderate Risk ROUTINE VENIPUNCTURE OFFICE/OUTPATIENT VISIT, EST GLYCOSYLATED HEMOGLOBIN TEST OFFICE/OUTPATIENT VISIT, EST Prophylaxis Adult [employer] [facility] [place] Dis May Oral Hygiene Instruction Moderate Risk [...] Low Risk [employer] [place] [facility] Jun Oral Hygiene Instruction OFFICE/OUTPATIENT VISIT, EST ROUTINE VENIPUNCTURE Prophylaxis Adult Oral Hygiene Instruction OFFICE/OUTPATIENT VISIT, NEW Oral Hygiene Instruction Prophylaxis Adult Oral Hygiene Instruction Periodic Oral Eval Estab Patient 2020 [employer] [facility] [place] [facility] Jan OFFICE/OUTPATIENT VISIT, NEW Periodic Oral [...] Diagnoses Date Provider Providers Copied on Encounter [facility], [address] [place] [address], [place], [place], [id number] , [place] tel:[phone] EHOVE No Information 5 David Sifuentes. [address] [place] [address], [address], [place]. tel: [phone] OFFICE/OUTPA TIENT VISIT, EST [facility], [address] [place] [address], [id number] , [place] tel: [phone] [facility] F/U Hyperlipidemia (chief complaint) Breast cancer screening by mammogramPrediab etesBody mass index [BMI]30.0-30.9, adult 5 David Sifuentes. [address] [place] [address], [address], [place]. tel: [phone] [facility], [address] [place] [address], [id number] , [place] tel: [phone] [facility] No Information 5 Sadia Armijo. [address] [place] [address], [id number] , [place]. tel: [phone] [facility], [address] [place] [address], [id number] , [place] tel: [phone] [facility] Medicare preventive (chief complaint) Body mass index [BMI] 31.0-31.9, adultEncounter for initial preventive physical examination covered by Medicare 5 David Sifuentes. [address] [place] [address], [address], [place]. tel: [phone] [facility], [address] [place] [address], [id number] , [place] tel: [phone] [facility] PA (chief complaint) Encounter for screening for dental disorders 5 Qiana Cunningham. . tel: [phone] [facility], [address] [place] [address], [id number] , [place] tel: [phone] ECJ[facility] No Information 5 David Sifuentes. [address] [place] [address], [address], [place]. tel: [phone] OFFICE/OUTPA TIENT VISIT, [facility], [address] [place] [address], [id number] , [place] tel: [phone] [facility] Wellness exam and lab draw (chief complaint)Lab draw (chief complaint) Body mass index [BMI]30.0-30.9, adultHypothyroid ism (acquired)Predia betesVitamin D deficiencyMixed hyperlipidemiaAn xiety with depressionAdult general medical exam 5 David Sifuentes. [address] [place] [address], [address], [place]. tel: [phone] OFFICE/OUTPA TIENT VISIT, [facility], [address] [place] [address], [id number] , [place] tel: [phone] [facility] Possible UTI (chief complaint) DysuriaPrediabet esBody mass index [BMI] 31.0-31.9, adult 5 David Sifuentes. [address] [place] [address], [address], [place]. tel: [phone] [facility], [address] [place] [address], [id number] , [place] tel: [phone] Dental Clinic pa (chief complaint) Encounter for screening for dental disordersBody mass index [BMI] 32.0-32.9, adult 5 Qiana Cunningham. . tel: [phone] OFFICE/OUTPA TIENT VISIT, [facility], [address] [place] [address], [id number] , [place] tel: [phone] [facility] Office visit (chief complaint) Body mass index [BMI] 32.0-32.9, adultHypothyroid ism (acquired) 5 David Sifuentes. [address] [place] [address], [address], [place]. tel: [phone] OFFICE/OUTPA TIENT VISIT, [facility], [address] [place] [address], [id number] , [place] tel: [phone] [facility] Polydipsia 4 David Sifuentes. [address] [place] [address], [address], [place]. tel: [phone] [facility], [address] [place] [address], [id number] , [place] tel: [phone] Dental Clinic pe (chief complaint) Encounter for screening for dental disorders 4 Qiana Cunningham. . tel: [phone] OFFICE/OUTPA TIENT VISIT, [facility], [address] [place] [address], [id number] , [place] tel: [phone] [facility] annual exam (chief complaint) Encounter for gynecological examination (general) (routine) without abnormal findingsBody mass index [BMI]30.0-30.9, adult 4 Dakota SOCORRO Gonsalez. [address] [place] [address], [id number] , [place]. tel: [phone] OFFICE/OUTPA TIENT VISIT, [facility], [address] [place] [address], [id number] , [place] tel: [phone] CRISTIANO Foster office visit (chief complaint)lab draw (chief complaint) Adult general medical examMixed hyperlipidemiaVi tamin D deficiencyAnxiet y with depressionHypoth yroidism (acquired)Predia betesBody mass index [BMI]30.0-30.9, adult 4 David Sifuentes. [address] [place] [address], [address], [place]. tel: [phone] OFFICE/OUTPA TIENT VISIT, [facility], [address] [place] [address], [id number] , [place] tel: [phone] CRISTIANO Foster f/u BP (chief complaint) Body mass index [BMI] 32.0-32.9, adultElevated blood pressure reading 3 David Sifuentes. [address] [place] [address], [address], [place]. tel: [phone] OFFICE/OUTPA TIENT VISIT, [facility], [address] [place] [address], [id number] , [place] tel: [phone] [facility] follow up (chief complaint)Lab draw (chief complaint) Hypothyroidism (acquired)Body mass index [BMI]30.0-30.9, adultRacing heart beatElevated blood pressure reading 3 West SUSHIL Sifuentes. [address] [place] [address], [address], [place]. tel: [phone] OFFICE/OUTPA TIENT VISIT, [facility], [address] [place] [address], [id number] , [place] tel: [phone] [facility] Wellness Visit (chief complaint)Lab Draw (chief complaint) Body mass index [BMI] 28.0-28.9, adultEncntr for general adult medical exam w/o abnormal findingsHypothyr oidism (acquired)Anxiet y with depressionMixed hyperlipidemiaEn counter for screening for HIVEncounter for hepatitis C screening test for low risk patientMusculosk eletal chest pain 3 David Sifeuntes. [address] [place] [address], [address], [place]. tel: [phone] OFFICE/OUTPA TIENT VISIT, [facility], [address] [place] [address], [id number] , [place] tel: [phone] [facility] c/o muscle spasms (chief complaint) Body mass index [BMI]30.0-30.9, adultMuscle ache of extremity 3 West SUSHIL Sifuentes. [address] [place] [address], [address], [place]. tel: [phone] [facility], [address] [place] [address], [id number] , [place] tel: [phone] Dental Clinic filling (chief complaint) Encounter for screening for dental disorders 3 Qiana Cunningham. . tel: [phone] [facility], [address] [place] [address], [id number] , [place] tel: [phone] [facility] Adult prophy (chief complaint) Encounter for screening for dental disorders 3 Qiana Cunningham. . tel: [phone] OFFICE/OUTPA TIENT VISIT, [facility], [address] [place] [address], [id number] , [place] tel: [phone] [facility] Cristian F/U 6 Month (chief complaint)Lab Draw (chief complaint) Hypothyroidism (acquired)Histor y of Erb's palsyBody mass index [BMI] 26.0-26.9, adult 2 David Sifuentes. [address] [place] [address], [address], [place]. tel: [phone] [facility], [address] [place] [address], [id number] , [place] tel: [phone] [facility] prophy (chief complaint) Encounter for screening for dental disorders 2 Clari Delgado. [address] [place] [address], [address], [place]. tel: [phone] OFFICE/OUTPA TIENT VISIT, [facility], [address] [place] [address], [id number] , [place] tel: [phone] [facility] Cristian est care (chief complaint)labs (chief complaint) Hypothyroidism (acquired)Body mass index [BMI] 28.0-28.9, adultSchizophren ia, chronic conditionAnxiety with depressionMixed hyperlipidemiaSi alorrheaEncounte r to establish careVitamin D deficiency 2 David Sifuentes. [address] [place] [address], [address], [place]. tel: [phone] [facility], [address] [place] [address], [id number] , [place] tel: [phone] [facility] Prophy (chief complaint) Encounter for screening for dental disorders 1 Eb Lovell. [address] [place] [address], [id number] , [place]. tel: [phone] [facility], [address] [place] [address], [id number] , [place] tel: [phone] [facility] DN (chief complaint) Encounter for screening for dental disorders 1 Romeo Peres. [address] [place], [address], [place]. tel: [phone] OFFICE/OUTPA TIENT VISIT, [facility], [address] [place], [place], [id number] , [place] tel: [phone] [facility] [place] est care (chief complaint) Anxiety with depressionSchizo phrenia, chronic conditionDyslipi demia, goal LDL below 100Hypothyroidis m (acquired)Encoun ter to establish care with new doctor 0 Lindsay Ferrer. [address] [place] [address], [id number] , [place]. tel: [phone] [facility], [address] [place] [address], [id number] , [place] tel: [phone] [facility] prophy (chief complaint) Encounter for screening for dental disorders 7 Jennifer Fox. [address] [place], [place], [id number] , [place]. tel: [phone] [facility], [address] [place] [address], [id number] , [place] tel: [phone] [facility] prophy (chief complaint) Encounter for screening for dental disorders 7 Taylor DMD Jinbo. [address] [place] [address], [address], [place]. tel: [phone] [facility], [address] [place] [address], [id number] , [place] tel: [phone] [facility] PROPHY (chief complaint) Encounter for screening for dental disorders 6 Gutierrez DMD Cassie. [address] [place] [address], [id number] , [place]. tel: [phone] [facility], [address] [place] [address], [id number] , [place] tel: [phone] [facility] prophy (chief complaint) Encounter for screening for dental disorders 6 [facility]. [address] [facility] [place], [id number] , [place]. tel: [phone] [facility], [address] [facility] [place], [id number] , [place] tel: [phone] Dental Clinic Dental examination [facility] August. [address] [facility] [place], [id number] , [place]. tel: [phone] [facility], [address] [facility], [id number] , [place] tel: [phone] Dental Clinic prophy (chief complaint) Dental examination [facility] August. [address] [facility], [id number] , [place]. tel: [phone] [facility], [address] [facility] [place], [id number] , [place] tel: [phone] [facility] Dental examination [facility] August. [address] [facility] [place], [place], [id number] , [place]. tel: [phone] [facility], [address] [facility] [place], [place], [id number] , [place] tel: [phone] [facility] Dental examination [facility] August. [address] [facility] [place], [id number] , [place]. tel: [phone] [facility], [address] [facility] [place], [id number] , [place] tel: [phone] [facility] Dental examination [facility] August. [address] [facility], [id number] , [place]. tel: [phone] [facility], [address] [place] [address] [place], [place], [id number] , [place] tel: [phone] Dental [facility] Dental examination [facility] August. [address] [place], [place], [id number] , [place]. tel: [phone] [facility], [address] [place], [place], [id number] , [place] tel: [phone] Dental Clinic Dental examination August. [address] [place], [place], [id number] , [place]. tel: [phone] Family History Family Member Type Diagnosis Age [...] ry Payers Payer name Insurance type Covered democrat ID Authoriza tion(s) Medicare PPS [id number] Medicare PPS [id number] Social History Type Description Quantity Date Captured [...] completed Goal HPV. Due on due Goal Hepatitis C screening. Due o n due Goal RLP. Due on due Goal Tdap Vaccine. Due on 2024 due Goal Tdap. Due on due Goal Lipid panel. Due on due Goal Depression screening. Due on due Goal Hep A. Due on du e Goal PRAPARE ASSESSMENT. Due on due Goal [...] 2023 due Goal Influenza vaccine. Due on Oc due Goal PRAPARE ASSESSMENT. Due on J due Goal Hepatitis C screening. Due o n due Goal Unhealthy drug use screening . Due on due Goal Dietary management education , guidance, and counseling completed Goal Lipid panel. Due on due Goal Unhealthy drug use screening . Due on due Goal Tdap. Due on due Goal PRAPARE ASSESSMENT. Due on D due Goal Influenza vaccine. Due on due [...] Oc due Goal PRAPARE ASSESSMENT. Due on due Goal Depression screening. Due on due Goal Lipid panel. Due on due Goal Tdap. Due on due Goal RLP. Due on due Goal Dietary management education , guidance, and counseling completed Goal Depression screening. Due on due Goal Tdap. Due on due Goal RLP. Due on due Goal Influenza vaccine. Due on Oc due Goal Tdap Vaccine. Due on 2022 [...] Influenza vaccine. Due on Oc due Goal Lifestyle education regardin g diet completed Goal Lipid panel. Due on due Goal Depression screening. Due on due Goal RLP. Due on due Goal Tdap. Due on due Goal Influenza vaccine. Due on due Goal Weight-reducing diet educati on completed Referral Ordered: MAMMOGRAM, SCREENING [id number], [id number] Selam Banegas History Of Present Illness Encounter Date Complaint History Of Prese nt Illness F/U Hyperlipidemia No Health iss ues to report today.Medications: Changed Buspirine dosage to match what patient is taking as well as adding Celexa.Flu: Given today//Dasia Adame noted. Has no issues/concerns today. Denies any [...] ROBLES Wellness exam and lab draw [facility] for annual wellness exam and lab [...] WILDER Heard Lab draw Lab draw from [facility] hand x 1 attempt, tolerated well, pressure dressing to area. Leanne Bennett RN Possible UTI Presents with c/ o possible UTI. Reports urgency, frequency, and pain. Symptoms for 3-4 weeks. States she has been drinking a lot cranberry juice, water and lemonade. GrzegorzAdria GayleSabrinadalia Adame noted. States symptom onset approx 1 [...] not had any recent hospitalizations. [facility] 10/2023WILDER Heard pe irma annual exam The client does not drink alcohol. Additional information: Patient is here to establish care. She has had a hysterectomy and they also took her ovaries. she does get some hot flashes, but they are starting to improve. Denies other EXPLOSIVES OPERATOR problems at this time. . lab draw [...] not had any recent hospitalizations. [facility] in [place] left; had full hyster age 41yrs was [...] increased anxiety. Here today to recheck symptoms. [facility] psychiatry provider Dr Bailey recently increased her [...] took off trazodone and hydroxyzine Mammogram- Mar 2022[facility]- Dr Collins in [place]; last seen 1 year ago; total hystJWest, GATE CLERK c/o muscle spasms Pt here with [...] hospitalizations. Requests mammogram to be sent to [facility]. Is interested in establishing care for woman's health; does not want to drive to [place] for exam any longer. Will call to make appt later. Influenza and COVID vaccine obtained approx 1 month ago. Félix GATE CLERK prophy prophy labs Lab drawn from [facility] AC x1 attempt successful.Rand Lopez RN est care Presents for est ablishing care. Was seeing Dr. Browning before but would not like to continue with her anymore. [facility]es [facility] dept for dental. Sees a psychiatrist at [facility] and dr. Antonio in [place]. States she has already seen EXPLOSIVES OPERATOR this year. States she [place] [facility] Needs medication refills on all medications not [...] October, normally sees every 3 months. Has case reviewer, Jacinda. Also participates in group therapy at [...] within [facility], has Ronak, WILDER Prophy DN DEL est care Pt here to [facility]. Pt denies any issues or concerns. Hilda, RN Pt's last visit with PCP Isabell [...] She does drink a lot of tea. 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 History of hysterectomy. [...] Continue with erica atment plan as per [facility] counseling and recovery2. If you have any thoughts of harming yourself or others; go to the ER or: -Call (available 10/12)-Crisis Text Line (available 10/12) text 4HOPE to [phone]-Ujlingwcv Hope Line (available 8a-Midnight) Call [phone] ([phone]) Related to Anxiety with depression 1. Labs today to ass ess lipids2. Make dietary changes3. Increase exercise4. Stop smoking/avoid smoke Related to Mixed hyperlipidemia 1. Labs obtained tojennifer noyola, will call [...] Body mass index [BMI] 30.0-30.9, adult 1. Labs obtained gianluca noyola, will call with results2. Take levothyroxine in morning upon awakening, on empty stomach; avoid eating or taking any other medication for approx 30-60 min after taking. Related to Hypothyroidism (acquired) 1. Continue with erica atment plan as per [facility] counseling and recovery2. If you have any thoughts of harming yourself or others; go to the ER or: -Call (available 10/12)-Crisis Text Line (available 10/12) text 4HOPE to [phone]-Cyptumver Hope Line (available 8a-Midnight) Call [phone] ([phone]) Related to Anxiety with depression 1. Continue [...] 2 weeks Related to Racing heart beat Dietary management e ducation, guidance, and counseling [...] Continue with erica atment plan as per [facility] counseling and recovery2. Call hotline number at [...] Continue with erica atment plan as per [facility] counseling and recovery2. Call hotline number at [...]
--- OUTSIDE RECORDS SUMMARY | 2025-03-17 17:14 | XMS_ITS | Patient Health Record ---
Author Organization [facility] es Address [address] [place] [address] Care Team Providers Care Vascular Specialists Name Role Phone Ruthie Samuel Primary Care Provider Dr. Toñito Lizarraga Unavailable [phone] Komal Russell Unavailable [phone] Reason For Referral No Information Encounters Encounter Location Date Provider Diagnosis [facility] [address] [place] [address] 06/04/2024 Ruthie Samuel Encounter for dental examination and cleaning with abnormal findings Z01.21 and Other dental procedure status Z98.818 Assessments Encounter Date Diagnosis (ICD Code) Assessment Notes Treatment Notes Treatment Clinical Notes Section Notes 06/04/2024 Encounter for dental examination and cleaning with abnormal findings (ICD-10 - Z01.21) 06/04/2024Other dental procedure status (ICD-10 - Z98.818) Plan Of Treatment No Information
[2025-03-17 17:18] VITALS: BP 121/87; PULSE 91; TEMP 36.8; O2SAT 96; BMI 30.5
--- NOTE | 2025-03-17 17:31 | CT_ITS ---
The [address] [address] Patient Name: ARTHUR SALES MRN: [id number] date: 1980 Sex: F Assigned Patient Location: ER Current Patient Location: ER Accession/Order Number: [id number] Exam Date: 03/17/2025 18:19 Report Date: 03/17/2025 18:36 At the request of: WALKER CORSS Procedure: CT abdomen pelvis w con CT ABDOMEN AND PELVIS WITH INTRAVENOUS CONTRAST: CLINICAL HISTORY: Diffuse abdominal pain, RLQ worst COMPARISON: None TECHNIQUE: Spiral images were obtained through the abdomen and pelvis following the administration of intravenous contrast. This CT exam was performed using one or more following dose reduction techniques: Automated exposure control, adjustment of the mA and/or kV according to patient size, or use of iterative reconstruction technique. FINDINGS: Lung Bases: [Hypoventilatory changes.] Organs:Fatty liver. Cholecystectomy. Spleen, adrenals, kidneys, and pancreas are unremarkable.[ GI: Mild to moderate retained stool greatest involving the cecum. Appendix unremarkable. No evidence of bowel obstruction. Cluster of subcentimeter lymph nodes left upper quadrant with surrounding haziness may represent mesenteric sclerosis versus sclerosing mesenteritis recommend follow-up.[ Pelvis:[Bladder unremarkable. Hysterectomy. No adnexal mass.] Peritoneum/Retroperitoneum:No free air or free fluid. Aorta normal in caliber.[ Abd wall/Bones:Degenerative changes of the lumbar spine. No suspicious osseous lesion.[ CT/CT abdomen pelvis w con IMPRESSION: Negative for acute inflammatory process or bowel obstruction Impression dictated by: Lowell Herman M.D. 03/17/2025 6:36 PM Dictation Location: [place] [address] Electronically authenticated by: [id number] Y Date: 03/17/2025 18:36
--- NOTE | 2025-03-17 17:42 | ED.GENADUL1 ---
HPI HPI - General Adult General Chief complaint: Abdominal Pain Stated complaint: Abdominal Pain Time Seen by Provider: 03/17/25 17:24 Source: patient Mode of arrival: walk-in Limitations: no limitations History of Present Illness HPI narrative: Patient is a 45-year-old with a PMH of IBS presents to the emergency department with complaints of lower abdominal pain that started earlier today. She notes she has had 3 normal bowel movements today. 5 days ago on 03/13 she reports she had diarrhea, about 6 loose stools in a day, but this cleared up and then the abdominal pain started today. She notes that she has had her gallbladder removed many years ago. She has had a complete hysterectomy about 5 years ago. She denies any vaginal discharge or bleeding but does report some urinary frequency and some urgency. She denies any vomiting but has had some nausea. She denies history of cancer. She also denies blood in her stool. Related Data Home Medications ?Medication ?Instructions ?Recorded ?Confirmed aripiprazole 20 mg tablet mg 03/17/25 buspirone 10 mg tablet mg 03/17/25 citalopram 10 mg tablet mg 03/17/25 clozapine 100 mg tablet mg 03/17/25 clozapine 50 mg tablet mg 03/17/25 fenofibrate nanocrystallized 145 mg PO 03/17/25 mg tablet lamotrigine 100 mg tablet mg 03/17/25 levothyroxine 50 mcg tablet mcg 03/17/25 Allergies Allergy/AdvReac Type Severity Reaction Status Date / Time carbamazepine (From Tegretol) Allergy Mild Vomiting Verified 03/17/25 17:16 divalproex sodium (From Allergy Mild Nausea Verified 03/17/25 17:16 Depakote) oxcarbazepine (From Allergy Mild Hives Verified 03/17/25 17:16 Trileptal) Penicillins Allergy Mild Hives Verified 03/17/25 17:16 escitalopram (From Lexapro) AdvReac Mild Diarrhea Verified 03/17/25 17:16 Opioid HPI Opioid Management Most Recent Opioid Data: Last Pain Scale 9 Today, 18:37 Review of Systems ROS Status of ROS 10 or more systems reviewed and unremarkable except as noted in history and below PFSH PFSH Social History Little interest or pleasure in doing things: not at all Feeling down, depressed, or hopeless: not at all Exam Narrative Exam Narrative: General: No distress, age-appropriate Skin: Warm, dry, no pallor. No rash. Head: Normocephalic, atraumatic. Neck: Supple, non-tender. Eye: Pupils are equal, round and EOMI. No scleral icterus. Ears, Nose, Mouth, and Throat: No nasal mucosal hypertrophy. Oral mucosa is moist, no posterior oropharynx erythema, uvula is mid-line Cardiovascular: Regular Rate and Rhythm without murmur, gallop or rub. Respiratory: No accessory muscle use or respiratory distress. Lungs are clear to auscultation, no wheezing, rales or rhonchi Musculoskeletal: Full ROM of all extremities, no calf or popliteal tenderness GI: Abdomen is soft, non-distended, diffusely tender with palpation, but can localize some to the right lower quadrant. No masses appreciated. No rebound, guarding, or rigidity noted. No CVA tenderness bilaterally. Neurological: A&O x4. No cranial nerve dysfunction observed. No truncal ataxia. Moves all extremities. Sensation intact. Psychiatric: Cooperative and interactive. Normal mood and affect. Constitutional Vital Signs, click to edit/add: Last Vital Signs Temp 98.2 F 03/17/25 17:18 Pulse 86 03/17/25 18:37 Resp 16 03/17/25 18:37 BP 109/75 03/17/25 18:37 Pulse Ox 96 03/17/25 18:37 O2 Del Method Room Air 03/17/25 18:37 Documenting provider has reviewed patient's vital signs: yes Course Vital Signs Vital signs: Vital Signs Temperature 98.2 F 03/17/25 17:18 Pulse Rate 91 H 03/17/25 17:18 Respiratory Rate 20 03/17/25 17:18 Blood Pressure 121/87 03/17/25 17:18 Pulse Oximetry 96 03/17/25 17:18 Oxygen Delivery Method Room Air 03/17/25 17:18 Temperature 98.2 F 03/17/25 17:18 Pulse Rate 86 03/17/25 18:37 Respiratory Rate 16 03/17/25 18:37 Blood Pressure 109/75 03/17/25 18:37 Pulse Oximetry 96 03/17/25 18:37 Oxygen Delivery Method Room Air 03/17/25 18:37 Medical Decision Making MDM Narrative Medical decision making narrative: This is a 45-year-old female that presented to the ED with complaints of abdominal pain that started this morning. She does also report nausea but no vomiting. She does report 3 bowel movements today. 4 days ago on 03/13 she notes she had some diarrhea, about 6 loose bowel movements. She has a past surgical history of a cholecystectomy and total hysterectomy. She does have a history of IBS. She also reports issues with urinary frequency and urgency recently. On arrival patient is in no distress, appears to be comfortable sitting on ED cart. Vital signs are hemodynamically stable. Temperature is afebrile at 98.2 ?F. There is diffuse abdominal tenderness, more localized at the right lower quadrant. No rebound tenderness. IV placed. CBC, CMP, lipase, UA ordered. She denies pain medication at this time. Labs: No leukocytosis, WBC 11, lipase mildly elevated at 87, UA negative for infection CT abdomen/pelvis negative for acute inflammatory process or bowel obstruction, mild to moderate retained stool greatest involving the cecum.Cluster of subcentimeter lymph nodes left upper quadrant with surrounding haziness may represent mesenteric sclerosis versus sclerosing mesenteritis recommend follow-up. Results discussed with patient and her and recommend magnesium citrate or MOM to help relieve the constipation. Patient has no one at home and will try this tonight. No acute surgical abdomen or emergent pathology. This patient?s lower abdominal pain is most consistent with constipation, likely in the context of IBS. The incidental LUQ mesenteric lymph nodes are non-urgent but warrant follow-up. No acute surgical or infectious process is present, patient declined pain medication multiple times. Patient's vitals remained hemodynamically stable in the ED, patient was discharged home with plan to treat constipation with MOM. Return to ED precautions were discussed for any new or worsening symptoms. She will follow-up with her PCP for incidental findings and ER aftercare. Differential Diagnosis Differential Diagnosis: Appendicitis, diverticulitis, UTI/cystitis, Lab Data Lab results reviewed: Yes I reviewed the patient's lab results Labs: Lab Results 03/17/25 03/17/25 Range/Units 17:36 18:00 WBC 11.0 (4.0-11.0) 10^3/uL RBC 4.58 (4.20-5.40) 10^6/uL Hgb 13.7 (12.0-16.0) g/dL Hct 41.1 (36.0-48.0) % MCV 89.7 (81.0-99.0) fL MCH 29.9 (26.7-34.0) pg MCHC 33.3 (29.9-35.2) g/dL RDW 13.2 (11.0-15.0) % Plt Count 262 (150-450) 10^3/uL MPV 10.1 (9.5-13.5) fL Neut % (Auto) 53.7 (43.0-75.0) % Lymph % (Auto) 22.6 (20.5-60.0) % [place] % (Auto) 5.2 (1.7-12.0) % Eos % (Auto) 16.7 H (0.9-7.0) % Baso % (Auto) 0.8 (0.2-2.0) % Neut # (Auto) 5.9 (1.4-6.5) 10^3/uL Lymph # (Auto) 2.5 (1.2-3.8) 10^3/uL [place] # (Auto) 0.6 (0.3-0.8) 10^3/uL Eos # (Auto) 1.8 H (0.0-0.7) 10^3/uL Baso # (Auto) 0.1 (0.0-0.1) 10^3/uL Abs Immat Gran (auto) 0.11 H (0.00-0.03) 10^3/uL Imm/Tot Granulo (auto) 1.0 H (0.0-0.5) % Sodium 141 (136-145) mmol/L Potassium 4.0 (3.5-5.1) mmol/L Chloride 107 (98-107) mmol/L Carbon Dioxide 23.7 (21.0-32.0) mmol/L Anion Gap 14.3 BUN 16.0 (7.0-18.0) mg/dL Creatinine 0.65 (0.55-1.02) mg/dL Est GFR ( Amer) >60 (>=60 mL/min/1.73m^2) Est GFR (Non-Af Amer) >60 (>=60 mL/min/1.73m^2) BUN/Creatinine Ratio 24.6 Glucose 133 H (74-106) mg/dL Calcium 9.7 (8.5-10.1) mg/dL Total Bilirubin 0.2 (0.2-1.0) mg/dL AST 20 (15-37) U/L ALT 32 (14-59) U/L Alkaline Phosphatase 99 (46-116) U/L Total Protein 7.3 (6.4-8.2) g/dL Albumin 3.9 (3.4-5.0) g/dL Globulin 3.4 g/dL Albumin/Globulin Ratio 1.1 Lipase 87.0 H (16.0-77.0) U/L Urine Color Lt. yellow (YELLOW) Urine Clarity Clear (CLEAR) Urine pH 6.0 (5.0-9.0) Ur Specific [place] <=1.005 A (1.005-1.025) Urine Protein Negative (NEG/TRACE) mg/dL Urine Glucose (UA) Negative (NEGATIVE) mg/dL Urine Ketones Negative (NEGATIVE) mg/dL Urine Occult Blood Negative (NEGATIVE) Urine Nitrite Negative (NEGATIVE) Urine Bilirubin Negative (NEGATIVE) Urine Urobilinogen 0.2 (0.2-1.0) EU/dL Ur Leukocyte Esterase Small A (NEGATIVE) Urine RBC 0-2 (0-2) #/HPF Urine WBC 2-5 A (NONE SEEN) #/HPF Ur Squamous Epith Cells Few A (NONE/RARE) #/LPF Urine Crystals None seen (None Seen) #/HPF Urine Bacteria Trace A (NONE SEEN) #/HPF Urine Casts None seen (NONE SEEN) #/LPF Urine Mucus None seen (NONE SEEN) Ur Culture Indicated? Yes-[facility] [place] Imaging Data CT scan - abdomen: Attestation: I have reviewed the pertinent imaging results. Radiologist's impression: ITS Impressions Abdomen/Pelvis CT 03/17/25 17:31 IMPRESSION: Negative for acute inflammatory process or bowel obstruction Impression dictated by: Lowell Herman M.D. 03/17/2025 6:36 PM Dictation Location: [place] [address] Electronically authenticated by: [id number] Y Date: 03/17/2025 18:36 Discharge Plan Discharge Chief Complaint: Abdominal Pain Clinical Impression: Constipation Patient Disposition: Home, Self-Care Time of Disposition Decision: 18:52 Condition: Good Mode of Transportation: Private Vehicle Prescriptions / Home Meds: No Action clozapine 100 mg tablet citalopram 10 mg tablet levothyroxine 50 mcg tablet buspirone 10 mg tablet lamotrigine 100 mg tablet aripiprazole 20 mg tablet clozapine 50 mg tablet fenofibrate nanocrystallized 145 mg tablet PO Print Language: [place] Instructions: Constipation (ED) Referrals: Maria Hernandez [facility] WRITER [Primary Care Provider] - 1 week Discharge Date/Time: 03/17/25 19:02
[2025-03-17 17:48] LABS: Hematocrit 41.1 % (36.0-48.0); Hemoglobin 13.7 g/dL (12.0-16.0); Immature Granulocytes Abs Auto 0.11 10^3/uL (0.00-0.03); Immature Granulocytes Pct Auto 1.0 % (0.0-0.5); Lymphocytes Absolute Auto 2.5 10^3/uL (1.2-3.8); Mean Corpuscular HGB Conc 33.3 g/dL (29.9-35.2); Mean Corpuscular Hemoglobin 29.9 pg (26.7-34.0); Mean Corpuscular Volume 89.7 fL (81.0-99.0); Platelet Count 262 10^3/uL (150-450); Red Blood Count 4.58 10^6/uL (4.20-5.40); White Blood Count 11.0 10^3/uL (4.0-11.0)
[2025-03-17 18:01] LABS: Alanine Aminotransferase 32 U/L (14-59); Albumin Globulin Ratio 1.1; Albumin Level 3.9 g/dL (3.4-5.0); Alkaline Phosphatase 99 U/L (46-116); Anion Gap 14.3; Aspartate Amino Transferase 20 U/L (15-37); Blood Urea Nitrogen 16.0 mg/dL (7.0-18.0); Calcium 9.7 mg/dL (8.5-10.1); Carbon Dioxide 23.7 mmol/L (21.0-32.0); Chloride 107 mmol/L (98-107); Estimated GFR (African America >60 (>=60 mL/min/1.73m^2); Estimated GFR (Non-African Ame >60 (>=60 mL/min/1.73m^2); Globulin 3.4 g/dL; Glucose 133 mg/dL (74-106); Lipase 87.0 U/L (16.0-77.0); Potassium 4.0 mmol/L (3.5-5.1); Sodium 141 mmol/L (136-145); Total Protein 7.3 g/dL (6.4-8.2)
[2025-03-17 18:05] LABS: Glucose Urine UA NEGATIVE (NEGATIVE)
[2025-03-17 18:21] LABS: Cast Seen? NONE SEEN #/LPF (NONE SEEN); Crystals Seen? None Seen #/HPF (None Seen); Urine Culture Indicated YES-FRMC
[2025-03-17 18:37] VITALS: BP 109/75; PULSE 86; O2SAT 96
== END 2025-03-17 19:02 | disposition home or self-care (01) ==
PROVIDERS: Physician Assistant; Emergency Provider Emergency Medicine; PCP Nurse Practitioner
DX: K59.00 Constipation, unspecified (principal); R10.84 Generalized abdominal pain; R11.0 Nausea; R35.0 Frequency of micturition
CPT/HCPCS: 36415; 74177; 80053; 81001; 83690; 85025; 87086; 87088; 99285; Q9967

== ENCOUNTER 2025-03-22 11:11 | Outpatient (OUT) | payer MEDICARE, SELFPAY ==
--- OUTSIDE RECORDS SUMMARY | 2024-02-10 08:30 | XMS_ITS ---
Author Organization [facility] Servic es Address [address] [place] [address] Care Team Providers Care Hat Designer Name Role Phone Ruthie Samuel Primary Care Provider Jill Dhillon Unavailable [phone] REASON FOR VISIT PROPHY BW EXAM Encounters Encounter Location Date Provider Diagnosis [facility] [address] [place] [address] 02/10/2024 Jill Pauljonathan Plan Of Treatment No Information Progress Notes * SKYE SALESOB:05/1979 (45 yo F)Acc No.[id number]:02/10/2024 Patient:?ARTHUR SALES :?Jill DhillonDOB:1980???Age:44 Y???Sex: FemaleDate:02/10/2024hone:[phone]:[address], [address] [place] [id number]:Ruthie Samuel Subjective: * Chief Complaints: * P ROPHY BW EXAM * Electronic signature of Jill Dhillon on 03/22/2025 at 11:16 AM ESTSign off status: Pending * Provider: Jim Dhillon Date: 0 02/10/2024 Generated for Printing/Faxing/eTransmitting on:?03/22/2025 11:16 AM EST
--- OUTSIDE RECORDS SUMMARY | 2024-03-20 10:00 | XMS_ITS ---
Author Organization [facility] Servic es Address [address] [place] [address] Care Team Providers Care Hosted Services Analyst Name Role Phone Ruthie Samuel Primary Care Provider [phone] Toñito Lizarraga Unavailable [phone] REASON FOR VISIT toothpain Encounters Encounter Location Date Provider Diagnosis [facility] [address] [place] [address] 03/20/2024 Toñito Lizarraga Plan Of Treatment No Information Progress Notes * SKYE SALESOB:05/1979 (45 yo F)Acc No.[id number]:03/20/2024 Patient:?BONGERIKAARTHUR YATES :?Toñito Lizarraga DDSDOB:1980???Age:44 Y???Sex: FemaleDate:03/20/2024hone:[phone]:Vanda2 [address], [place] [id number]:Ruthie Samuel Subjective: * Chief Complaints: * T oothpain * Electronic signature of Dr. Toñito Lizarraga , DMD, [id number] on 03/22/2025 at 11:17 AM ESTSign off status: Pending * Provider: mR Lizarraga DDS Date: 05/20/2023 Generated for Printing/Faxing/eTransmitting on:?03/22/2025 11:17 AM EST
--- OUTSIDE RECORDS SUMMARY | 2024-03-25 09:00 | XMS_ITS ---
Author Organization [facility] Servic es Address [address] [place] [address] Care Team Providers Care Contracts Officer Name Role Phone Ruhtie Samuel Primary Care Provider [phone] Toñito Lizarraga Unavailable [phone] REASON FOR VISIT sensitivity Encounters Encounter Location Date Provider Diagnosis [facility] Services [address] [place] [address] 03/25/2024 Toñito Lizarraga Plan Of Treatment No Information Progress Notes * SKYE SALESOB:05/1979 (45 yo F)Acc No.[id number]:03/25/2024 Patient:?ARTHUR SALES :?Toñito Lizarraga DDSDOB:1980???Age:44 Y???Sex: FemaleDate:03/25/2024hone:[phone]:[address], [place] [id number]:Ruthie Samuel Subjective: * Chief Complaints: * S ensitivity * Electronic signature of Dr. Toñito Lizarraga , DMD, [id number] on 03/22/2025 at 11:16 AM ESTSign off status: Pending * Provider: Rm Lizarraga DDS Date: 05/25/2023 Generated for Printing/Faxing/eTransmitting on:?03/22/2025 11:16 AM EST
--- OUTSIDE RECORDS SUMMARY | 2024-07-17 11:05 | XMS_ITS ---
Author Organization [facility] Servic es Address [address] [place] [address] Care Team Providers Care Slab Polisher Name Role Phone Ruthie Samuel Primary Care Provider [phone] Dr. Toñito Lizarraga Unavailable [phone] REASON FOR VISIT FILLING Encounters Encounter Location Date Provider Diagnosis [facility] Services [address] [place] [address] 07/17/2024 Toñito Lizarraga Plan Of Treatment No Information Progress Notes * SKYE SALESOB:05/1979 (45 yo F)Acc No.[id number]:07/17/2024 Patient:?ARTHUR SALES :?Toñito Lizarraga DDSDOB:1980???Age:44 Y???Sex: FemaleDate:07/17/2024Phone:[phone]:[address], [place] [id number]:Ruthie Samuel Subjective: * Chief Complaints: * F ILLING * Electronic signature of Dr. Toñito Lizarraga , DMD, [id number] on 03/22/2025 at 11:16 AM ESTSign off status: Pending * Provider: Rm Lizarraga DDS Date: 0 07/17/2024 Generated for Printing/Faxing/eTransmitting on:?03/22/2025 11:16 AM EST
--- OUTSIDE RECORDS SUMMARY | 2024-08-14 06:50 | XMS_ITS ---
Author Organization [facility] Servic es Address [address] [place] [address] Care Team Providers Care Network Engineer Name Role Phone Ruthie Samuel Primary Care Provider [phone] Dr. Toñito Lizarraga Unavailable [phone] REASON FOR VISIT FILLING Encounters Encounter Location Date Provider Diagnosis [facility] Services [address] [place] [address] 08/14/2024 Toñito Lizarraga Plan Of Treatment No Information Progress Notes * SKYE SALESOB:05/1979 (45 yo F)Acc No.[id number]:08/14/2024 Patient:?ARTHUR SALES :?Toñito Lizarraga DDSDOB:1980???Age:44 Y???Sex: FemaleDate:08/14/2024Phone:[phone]:[address], [place] [id number]:Ruthie Samuel Subjective: * Chief Complaints: * F ILLING * Electronic signature of Dr. Toñito Lizarraga , DMD, [id number] on 03/22/2025 at 11:16 AM ESTSign off status: Pending * Provider: Rm Lizarraga DDS Date: 08/14/2024 Generated for Printing/Faxing/eTransmitting on:?03/22/2025 11:16 AM EST
--- OUTSIDE RECORDS SUMMARY | 2024-10-15 10:00 | XMS_ITS ---
Author Organization [facility] Servic es Address [address] [place] [address] Care Team Providers Care Architect In Training Name Role Phone Ruthie Samuel Primary Care Provider Komal Russell Unavailable [phone] REASON FOR VISIT PROPHY Encounters Encounter Location Date Provider Diagnosis [facility] Services [address] [place] [address] 10/15/2024 Komal Russell Plan Of Treatment No Information Progress Notes * SKYE SALESOB:05/1979 (45 yo F)Acc No.[id number]:10/15/2024 Patient:?ARTHUR SALES :?Komal RussellDOB:1980???Age:44 Y???Sex: FemaleDate:10/15/2024Phone:[phone]:[address], [address] [place] [id number]:Ruthie Samuel Subjective: * Chief Complaints: * P ROPHY * Electronic signature of Komal Russell on 03/22/2025 at 11:17 AM ESTSign off status: Pending * Provider: Danielle Russell Date: 0 10/15/2024 Generated for Printing/Faxing/eTransmitting on:?03/22/2025 11:17 AM EST
--- OUTSIDE RECORDS SUMMARY | 2025-03-04 06:52 | XMS_ITS | Continuity of Care Document ---
[facility] Address [address] [place] [address] Phone Care Team Providers Care Field Operations Technician Name Role Phone Maria Castro Unavailable Unavailable [...] Prophylaxis Adult [facility] [place] Dis Nov Oral Hygiene Instruction Moderate Risk ROUTINE VENIPUNCTURE OFFICE/OUTPATIENT VISIT, EST GLYCOSYLATED HEMOGLOBIN TEST OFFICE/OUTPATIENT VISIT, EST Prophylaxis Adult [facility] Of [place] Dis May Oral Hygiene Instruction Moderate Risk [...] Low Risk [facility] [place] Dis Jun Oral Hygiene Instruction OFFICE/OUTPATIENT VISIT, EST ROUTINE VENIPUNCTURE Prophylaxis Adult Oral Hygiene Instruction OFFICE/OUTPATIENT VISIT, NEW Oral Hygiene Instruction Prophylaxis Adult Oral Hygiene Instruction Periodic Oral Eval Estab Patient 2020 [employer] [facility] [place] Dis Jan OFFICE/OUTPATIENT VISIT, NEW Periodic Oral [...] Diagnoses Date Provider Providers Copied on Encounter [facility], [address] [place] [address], [place], [place], [id number] , [place] tel:[phone] [facility] No Information 5 David Sifuentes. [address] [place] [address], [id number], [place]. tel: [phone] OFFICE/OUTPA TIENT VISIT, EST [facility], [address] [place] [address], [id number] , [place] tel: [phone] [facility] F/U Hyperlipidemia (chief complaint) Breast cancer screening by mammogramPrediab etesBody mass index [BMI]30.0-30.9, adult 5 David Sifuentes. [address] [place] [address], [id number], [place]. tel: [phone] [facility], [address] [place] [address], [id number] , [place] tel: [phone] [facility] No Information 5 Sadia Armijo. [address] [place] [address], [id number] , [place]. tel: [phone] [facility], [address] [place] [address], [id number] , [place] tel: [phone] [facility] Medicare preventive (chief complaint) Body mass index [BMI] 31.0-31.9, adultEncounter for initial preventive physical examination covered by Medicare 5 David Sifuentes. [address] [place] [address], [address], [place]. tel: [phone] [facility], [address] [place] [address], [id number] , [place] tel: [phone] [facility] (chief complaint) Encounter for screening for dental disorders 5 Qiana Cunningham. . tel: [phone] [facility], [address] [place] [address], [id number] , [place] tel: [phone] [facility] No Information 5 David Sifuentes. [address] [place] [address], [id number], [place]. tel: [phone] OFFICE/OUTPA TIENT VISIT, [facility], [address] [place] [address], [id number] , [place] tel: [phone] [facility] Wellness exam and lab draw (chief complaint)Lab draw (chief complaint) Body mass index [BMI]30.0-30.9, adultHypothyroid ism (acquired)Predia betesVitamin D deficiencyMixed hyperlipidemiaAn xiety with depressionAdult general medical exam 5 David Sifuentes. [address] [place] [address], [id number], [place]. tel: [phone] OFFICE/OUTPA TIENT VISIT, [facility], [address] [place] [address], [id number] , [place] tel: [phone] [facility] Possible UTI (chief complaint) DysuriaPrediabet esBody mass index [BMI] 31.0-31.9, adult 5 David Sifuentes. [address] [place] [address], [address], [place]. tel: [phone] [facility], [address] [place] [address], [id number] , [place] tel: [phone] [facility] pa (chief complaint) Encounter for screening for dental disordersBody mass index [BMI] 32.0-32.9, adult 5 Qiana Cunningham. . tel: [phone] OFFICE/OUTPA TIENT VISIT, [facility], [address] [place] [address], [id number] , [place] tel: [phone] [facility] Office visit (chief complaint) Body mass index [BMI] 32.0-32.9, adultHypothyroid ism (acquired) 5 David Sifuentes. [address] [place] [address], [address], [place]. tel: [phone] OFFICE/OUTPA TIENT VISIT, [facility], [address] [place] [address], [id number] , [place] tel: [phone] [facility] Polydipsia 4 David Sifuentes. [address] [place] [address], [id number], [place]. tel: [phone] [facility], [address] [place] [address], [id number] , [place] tel: [phone] [facility] pe (chief complaint) Encounter for screening for dental disorders 4 Qiana Cunningham. . tel: [phone] OFFICE/OUTPA TIENT VISIT, [facility], [address] [place] [address], [id number] , [place] tel: [phone] [facility] annual exam (chief complaint) Encounter for gynecological examination (general) (routine) without abnormal findingsBody mass index [BMI]30.0-30.9, adult 4 Dakota SOCORRO Gonsalez. [address] [place] [address], [id number] , [place]. tel: [phone] OFFICE/OUTPA TIENT VISIT, [facility], [address] [place] [address], [id number] , [place] tel: [phone] CRISTIANO Foster office visit (chief complaint)lab draw (chief complaint) Adult general medical examMixed hyperlipidemiaVi tamin D deficiencyAnxiet y with depressionHypoth yroidism (acquired)Predia betesBody mass index [BMI]30.0-30.9, adult 4 David Sifuentes. [address] [place] [address], [address], [place]. tel: [phone] OFFICE/OUTPA TIENT VISIT, [facility], [address] [place] [address], [id number] , [place] tel: [phone] CIRSTIANO Foster f/u BP (chief complaint) Body mass index [BMI] 32.0-32.9, adultElevated blood pressure reading 3 David Sifuentes. [address] [place] [address], [address], [place]. tel: [phone] OFFICE/OUTPA TIENT VISIT, [facility], [address] [place] [address], [id number] , [place] tel: [phone] [facility] follow up (chief complaint)Lab draw (chief complaint) Hypothyroidism (acquired)Body mass index [BMI]30.0-30.9, adultRacing heart beatElevated blood pressure reading 3 West SUSHIL Sifuentes. [address] [place] [address], [address], [place]. tel: [phone] OFFICE/OUTPA TIENT VISIT, [facility], [address] [place] [address], [id number] , [place] tel: [phone] [facility] Wellness Visit (chief complaint)Lab Draw (chief complaint) Body mass index [BMI] 28.0-28.9, adultEncntr for general adult medical exam w/o abnormal findingsHypothyr oidism (acquired)Anxiet y with depressionMixed hyperlipidemiaEn counter for screening for HIVEncounter for hepatitis C screening test for low risk patientMusculosk eletal chest pain 3 David Sifuentes. [address] [place] [address], [address], [place]. tel: [phone] OFFICE/OUTPA TIENT VISIT, [facility], [address] [place] [address], [id number] , [place] tel: [phone] [facility] c/o muscle spasms (chief complaint) Body mass index [BMI]30.0-30.9, adultMuscle ache of extremity 3 West SUSHIL Sifuentes. [address] [place] [address], [address], [place]. tel: [phone] [facility], [address] [place] [address], [id number] , [place] tel: [phone] [facility] filling (chief complaint) Encounter for screening for dental disorders 3 Qiana Cunningham. . tel: [phone] [facility], [address] [place] [address], [id number] , [place] tel: [phone] [facility] Adult prophy (chief complaint) Encounter for screening for dental disorders 3 Qiana Cunningham. . tel: [phone] OFFICE/OUTPA TIENT VISIT, [facility], [address] [place] [address], [id number] , [place] tel: [phone] [facility] Cristian F/U 6 Month (chief complaint)Lab Draw (chief complaint) Hypothyroidism (acquired)Histor y of Erb's palsyBody mass index [BMI] 26.0-26.9, adult 2 David Sifuentes. [address] [place] [address], [id number], [place]. tel: [phone] [facility], [address] [place] [address], [id number] , [place] tel: [phone] [facility] prophy (chief complaint) Encounter for screening for dental disorders 2 Clari Delgado. [address] [place] [address], [address], [place]. tel: [phone] OFFICE/OUTPA TIENT VISIT, [facility], [address] [place] [address], [id number] , [place] tel: [phone] [facility] Cristian est care (chief complaint)labs (chief complaint) Hypothyroidism (acquired)Body mass index [BMI] 28.0-28.9, adultSchizophren ia, chronic conditionAnxiety with depressionMixed hyperlipidemiaSi alorrheaEncounte r to establish careVitamin D deficiency 2 David Sifuentes. [address] [place] [address], [address], [place]. tel: [phone] [facility], [address] [place] [address], [id number] , [place] tel: [phone] [facility] Prophy (chief complaint) Encounter for screening for dental disorders 1 Eb Lovell. [address] [place] [address], [id number] , [place]. tel: [phone] [facility], [address] [place] [address], [id number] , [place] tel: [phone] [facility] DN (chief complaint) Encounter for screening for dental disorders 1 Romeo Peres. [address] [place], [address], [place]. tel: [phone] OFFICE/OUTPA TIENT VISIT, [facility], [address] [place], [place], [id number] , [place] tel: [phone] [facility] [place] est care (chief complaint) Anxiety with depressionSchizo phrenia, chronic conditionDyslipi demia, goal LDL below 100Hypothyroidis m (acquired)Encoun ter to establish care with new doctor 0 Lindsay Ferrer. [address] [place] [address], [id number] , [place]. tel: [phone] [facility], [address] [place] [address], [id number] , [place] tel: [phone] [facility] prophy (chief complaint) Encounter for screening for dental disorders 7 Jennifer Fox. [address] [place], [place], [id number] , [place]. tel: [phone] [facility], [address] [place] [address], [id number] , [place] tel: [phone] [facility] prophy (chief complaint) Encounter for screening for dental disorders 7 Taylor DMD Jinbo. [address] [place] [address], [address], [place]. tel: [phone] [facility], [address] [place] [address], [id number] , [place] tel: [phone] [facility] PROPHY (chief complaint) Encounter for screening for dental disorders 6 Gutierrez DMD Cassie. [address] [place] [address], [id number] , [place]. tel: [phone] [facility], [address] [place] [address], [id number] , [place] tel: [phone] [facility] prophy (chief complaint) Encounter for screening for dental disorders 6 [facility] August. [address] [facility] [place] [id number] , [place]. tel: [phone] [facility] [address] [facility] [id number] , [place] tel: [phone] [facility] Dental examination [facility] August. [address] [facility] [place], [id number] , [place]. tel: [phone] [facility] [address] [facility], [id number] , [place] tel: [phone] [facility] prophy (chief complaint) Dental examination [facility] August. [address] [facility], [id number] , [place]. tel: [phone] [facility], [address] [facility] [place], [place], [id number] , [place] tel: [phone] [facility] Dental examination [facility] August. [address] [facility] [place], [place], [id number] , [place]. tel: [phone] [facility], [address] [facility] [place], [place], [id number] , [place] tel: [phone] [facility] Dental examination [facility] August. [address] [facility] [place], [place], [id number] , [place]. tel: [phone] [facility], [address] [facility] [place], [place], [id number] , [place] tel: [phone] [facility] Dental examination [facility] August. [address] [facility], [id number] , [place]. tel: [phone] [facility], [address] [place] [address] [place], [place], [id number] , [place] tel: [phone] [facility] Dental examination [facility] August. [address] [place], [place], [id number] , [place]. tel: [phone] [facility], [address] [place], [place], [id number] , [place] tel: [phone] [facility] Dental examination August. [address] [place], [place], [id number] , [place]. tel: [phone] Family History Family Member Type Diagnosis Age [...] ry Payers Payer name Insurance type Covered green party ID Authoriza tidali(s) Medicare PPS MB [id number] Social History Type Description Quantity Date Captured [...] Goal Lipid panel. Due on due Goal Hepatitis C screening. Due o n due Goal Lipid panel. Due on due Goal Influenza vaccine. Due on Oc due Goal HPV. Due on due Goal RLP. Due on due Goal Unhealthy drug use screening . Due on due Goal PRAPARE ASSESSMENT. Due on O due Goal Tdap. Due on due Goal Tdap Vaccine. Due on 2024 due Goal Depression screening. Due on due Goal Lifestyle education regardin [...] due Goal RLP. Due on due Goal Lifestyle education regardin [...] Goal Influenza vaccine. Due on due Goal Hep A. Due [...] on due Goal Lipid panel. Due on 030 due Goal Depression screening. Due on due [...] PRAPARE ASSESSMENT. Due on A due Goal Tdap Vaccine. Due on 2024 due Goal HPV. Due on due Goal Influenza vaccine. Due on due Goal Lipid panel. Due on due Goal Depression screening. Due on due Goal Dietary management education [...] Hep A. Due on du e Goal RLP. Due on due Goal Unhealthy [...] PRAPARE ASSESSMENT. Due on O due Goal RLP. Due on due Goal [...] e Goal Tdap. Due on due Goal RLP. [...] use screening . Due on due Goal Dietary management education [...] education , guidance, and counseling completed Goal Depression screening. [...] educati on completed Referral Ordered: MAMMOGRAM, SCREENING [id number], [id number] Selam Banegas History Of Present Illness Encounter Date Complaint History Of Prese nt Illness F/U Hyperlipidemia No Health iss ues to report today.Medications: Changed Buspirine dosage to match what patient is taking as well as adding Celexa.Flu: Given today//JWHupp RNAbove noted. Has no issues/concerns today. Denies any recent illnesses or hospitalizations. Continues seeing Dr Finn at [facility] for psychiatry. Med changes as above and [...] ROBLES Wellness exam and lab draw [facility]se [facility] for annual wellness exam and lab draw. Mammogram done 03/2024. Last pap done 10/2023. Denies other problems/concerns. Leanne Adame noted. Continues seeing Dr Finn at [facility] for psychiatry. No counseling services. Started buspirone [...] not had any recent hospitalizations. [facility]23WILDER Heard pe irma annual exam The client does not drink alcohol. Additional information: Patient is here to establish care. She has had a hysterectomy and they also took her ovaries. she does get some hot flashes, but they are starting to improve. 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 . lab draw [...] not had any recent hospitalizations. [facility] [place] [facility]; had full hyster age 41yrs was [...] increased anxiety. Here today to recheck symptoms. [facility] psychiatry provider Dr Bailey recently increased her [...] feels anxious. Does continue under care with [facility] psychiatry. Denies any change in medications. WILDER [...] pain relief measures. Continues under psychiatry with [facility]- Dr Iqbal every 3 months, took off trazodone and hydroxyzine [facility] in [place]; last seen 1 year ago; total hystJWest, [facility] c/o muscle spasms Pt here with c [...] very unhealthy. Denies any other issues/concerns. [facility] filling filling Adult prophy Adult Prophy Lab [...] hospitalizations. Requests mammogram to be sent to [facility]. Is interested in establishing care for woman's health; does not want to drive to [place] for exam any longer. Will call to make appt later. Influenza and COVID vaccine obtained approx 1 month ago. [facility] prophy prophy labs Lab drawn from l t AC x1 attempt successful.Rand Lopez RN est care Presents for est ablishing care. Was seeing Dr. Browning before but would not like to continue with her anymore. [facility]es [facility] dept for dental. Sees a psychiatrist at [facility] and dr. Antonio in [place]. 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 States she had 2020 mammogram at [facility]. Needs medication refills on all medications not [...] October, normally sees every 3 months. Has director of casework services, Jacinda. Also participates in group therapy at [facility]. Dx with schizoaffective disorder, anxiety, depression. Previous [...] within past yearD[facility], mammogram order through them, has orderFélix, [facility] Prophy DN DN est care [facility]. Pt denies any issues or concerns. Hilda [...] She does drink a lot of tea. COOK RELIEF- Long time since exam. History of hysterectomy. [...] excessive carbohydrates.3. Stop/decrease smoking Related to Prediabetes Giving encouragement to exercise Related to Body mass index [BMI] 30.0-30.9, adult Lifestyle education regarding di et Related to Body mass index [BMI] 30.0-30.9, adult 1. F/U annually for wellness vis it Related to Encounter for initial preventive physical examination covered by Medicare Giving encouragement to exercise Related to Body mass index [BMI] 31.0-31.9, adult Lifestyle education regarding di et Related to Body mass index [BMI] 31.0-31.9, adult Counseled on weight reduction 1. F/U annually for wellness visit2. Labs completed today, will call with results; call if no communication within 1-2 weeks. Related to Adult general medical exam 1. Continue with erica atment plan as per [facility] counseling and recovery2. If you have any thoughts of harming yourself or others; go to the ER or: -Call (available 10/12)-Crisis Text Line (available 10/12) text 4HOPE to [phone]-Sxkdvxhez Hope Line (available 8a-Midnight) Call [phone] ([phone]) Related to Anxiety with depression 1. Labs [...] gynecological examination (general) (routine) without abnormal findings Dietary needs education Related to Body mass index [BMI] 30.0-30.9, adult Giving encouragement to exercise Related to Body mass index [BMI] 30.0-30.9, adult 1. Continue daily me ds2. Make dietary changes3. Increase exercise4. Stop smoking/avoid smoke5. Lipid panel today Related to Mixed hyperlipidemia 1. Checking A1C leve l2. Decrease conc sweets and excessive carbohydrates.3. Stop/decrease smoking Related to Prediabetes 1. Labs obtained gianluca noyola, will call with results2. Take levothyroxine in morning upon awakening, on empty stomach; avoid eating or taking any other medication for approx 30-60 min after taking. Related to Hypothyroidism (acquired) 1. Continue with erica atment plan as per [facility] counseling and recovery2. If you have any thoughts of harming yourself or others; go to the ER or: -Call (available 10/12)-Crisis Text Line (available 10/12) text 4HOPE to [phone]-Airnguhpe Hope Line (available 8a-Midnight) Call [phone] ([phone]) Related to Anxiety with depression 1. Take daily vitamin d Related to [...] Body mass index [BMI] 32.0-32.9, adult 1. Reduce sodium and eat a Heart Healthy diet (less than 300mg cholesterol/day) or DASH diet2. Exercise moderate intensity at least 30 min/day for 5 days/week3. Check Blood pressure at home and keep a log4. No smoking/Avoid smoke exposure5. Limit alcohol intake6. Follow-up in 2 weeks Related to Elevated blood pressure reading 1. Labs obtained tojennifer noyola, will call with results2. Take levothyroxine in morning upon awakening, on empty stomach; avoid eating or taking any other medication for approx 30-60 min after taking. Related to Hypothyroidism (acquired) 1. Decrease caffeine intake2. Go to ER for any sustained chest pain/palpitations or shortness of breath3. F/U in 2 weeks Related to Racing heart beat Giving encouragement to exercise Related to Body mass index [BMI] 30.0-30.9, adult Dietary management e ducation, guidance, and counseling Related to Body mass index [BMI] 30.0-30.9, adult 1. F/U annually for wellness visit2. Labs completed today, will call with results; call if no communication within 1-2 weeks. Related to Encntr for general adult medical exam w/o abnormal findings 1. Use NSAIDs as nee ded for pain2. Call if symptoms worsen or increase3. Go to ER for any sustained chest pain; palpitations or shortness of breath Related to Musculoskeletal chest pain 1. Labs obtained tojennifer noyola, will call with results2. Take levothyroxine in morning upon awakening, on empty stomach; avoid eating or taking any other medication for approx 30-60 min after taking. 3. F/U in 6 months Related to Hypothyroidism (acquired) 1. Continue with erica atment plan as per [facility] counseling and recovery2. Call hotline [...] annual wellness visit Related to Hypothyroidism (acquired) Lifestyle education regarding di et Related to Body mass index [BMI] 26.0-26.9, adult Giving encouragement to exercise Related to Body mass index [BMI] 26.0-26.9, adult 1. Call for any issues/concerns Related to Encounter to establish care 1. Labs obtained gianluca noyola, anticipate call within 1-2 weeks Related to Vitamin D deficiency 1. Continue with erica atment plan as per [facility] counseling and recovery2. Call hotline [...]
--- OUTSIDE RECORDS SUMMARY | 2025-03-18 19:42 | XMS_ITS | Continuity of Care Document ---
Author Organization [facility] Address [address] [place] [address] Phone Care Team Providers Care Manager Mechanical Maintenance Name Role Phone Maria Hernandez APRN Primary Care Provider Antonia Finn MD Attending Provider Wilian Sneed MD Attending Provider [phone] Fatoumata Shah PA-C Attending Provider Care Teams Visit Care Team Team Status: Inactive Member Role/Relationship Status Dates Maria Hernandez APRN Primary Care Provider Active Start: January 19, 2025 End: January 19, 2025Lori Godoy ProviderActiveStart: January 19, 2025 End: January 19, 2025 Visit Care Team Team Status: Active Member Role/Relationship Status Dates Maria Hernandez APRN Primary Care Provider Active Start: February 04, 2025 Lori Downey ProviderActiveStart: February 04, 2025 Patient Care Team Team Status: Inactive Member Role/Relationship Status Dates Fatoumata Shah PA-C Attending Provider Active Start: March 17, 2025 End: March 17, 2025 Chief Complaint and Reason for Visit Chief Complaint Admit Date Z79.899 schizoeffective disorder er 2024 12:51pm BH February 04, 2025 2:08pm Unknown March 17, 2025 6 :00pm Allergies, Adverse Reactions, Alerts Allergen Type Severity Reaction Last Updated Verified Status carbamazepine Allergy Unknown Gastrointestin al Upset, stomach upset November 10, 2023 5:38pm Yes Active divalproex sodium Allergy Unknown Unknown Reaction J une 2023 5:38pm Yes Active lithium Allergy Unknown Unknown Reaction October 5:38pm Yes Active oxcarbazepine Allergy Unknown Unknown Reaction, rash November 10, 2023 5:38pm Yes Active penicillin G Allergy Unknown Unknown Reaction October 192023 5:38pm Yes Active escitalopram Allergy Unknown Unknown Reaction October 192023 5:38pm Yes Active Penicillins Allergy Unknown Hives November 10, 2023 5:38pm Yes Active Social History Smoking Status Status Start Date End Date Date of Observa tion Ex-smoker (finding) November 10, 2023 5:59pm Observation Status Observation Response Date of Response Legal Sex Female (finding) Sex Assigned At BirthFemaleSept1979 Family History Relationship Condition Age at Onset Recorded Date/T donnell Not Specified No pertinent family history Unknown Problems Active Problems Problem Diagnosis/Recorded Date Onset Date Stat SARS-CoV-2 positive July 26, 2020 7:37am Unknown Active Schizoaffective disorder, bipolar type November 04, 2019 3:34pm Unknown Active Insomnia May 09, 2020 9:56am Unknown A ctive Pyuria November 04, 2019 3:15pm Unknown Activ e Suicidal ideation November 04, 2019 3:15pm Unknown Active Hypertriglyceridemia July 22, 2020 4:48pm Unknown Active Hypothyroid July 22, 2020 4:48pm Unknown Activ e Neutropenia July 29, 2020 5:26pm Unknown Acti ve Costochondritis October 30, 2022 5:20pm Unknown Ac tive Bipolar 1 disorder June 29, 2020 11:54am Unknown Active UTI (urinary tract infection ), bacterial July 22, 2020 4:47pm Unknown Active Abdominal pain July 22, 2020 4:46pm Unknown Act robert Inactive/Resolved Problems Problem Diagnosis/Recorded Date Onset Date Stat us Acute torticollis November 10, 2023 5:59pm Unknown Resolved Atypical chest pain August 07, 2019 7:34pm Unknown Resolved Medications Medication Status Dose Units Route Directions Qty Days Refills S tart Date Stop Date End Date Reason(s) Instructions Adherence Ibuprofen 800 mg Tablet Discontinued 800 MG PO Three times daily as needed for Pain 20 0March 2019 12:002019 12:37pmLumateperone (Caplyta) 42 mg UringqbOhewdhsflirk09ZGZKYgrcnXhkjnnld 17th, 2020 1:00amMay 09, 2020 9:57amTrazodone 50 mg nvwahxQmdtddizzbqk43HBVOTfoopuc as needed for Sleep May 05, 2020 1:002019 9:57amDoxepin 100 mg capsule Bfctkbfjotso662VAZQKxrylwrNwjbdeig 17th, 2020 1:002019 9:57am Zolpidem 10 mg PbgqgcGhsmecrqykjy03SGDRTwlgl at bsqogkg54456Xizyiuap2019 1:00amJanuary 2020 2:38pmInsomnia Insomnia, unspecifiedDivalproex 500 mg Tablet Extended Release 24 HrDiscontinued 500MGPOEvery 12 wbtez413Qvpjtsxb2019 1:00amFebruary 2020 12:30pm Buspirone 15 mg PbeivwAorohmrtarmn81UEUWBxoko times rltpv471Babospol2019 9:57amFebruary 2020 12:30pmPaliperidone 9 mg tablet extended release 24hr Nanzwrzlritc8CDBEEdxzg at xnmunit209Wewabcoo2019 9:57amFebruary 2020 12:30pmLumateperone (Caplyta) 42 mg SlkoyugNqgphmlrnilm07KEXYWawzz634 May 09, 2020 9:57amMarch 2020 6:27amDivalproex (Depakote Er) 500 mg tablet extended release 24 obBkiuwlooufam862DCHMMdefu 12 hoursFebruary 2020 12:29pmMarch 2020 6:29amBuspirone 15 mg boiloqAgclfuwfavie10GJOELkwiz times dailyFebruary 2020 12:29pmMarch 2020 9:40amPaliperidone (Invega) 9 mg tablet extended release 90fjPhhxyuuovgqi5HKOZPdsbt at bedtime June 29, 2020 12:29pmMarch 2020 6:30amLactobacillus Combination No.4 (Probiotic) 3 billion cell LbtvpihSvydzhmzyetm2170DJB CELLSPODailyFeuary 2020 1:00am[facility] 2020 9:40amAripiprazole 10 mg KetrrkPpthydqwsdlx30VCPO Xbngf2Bkouw 2020 1:00[facility] 2020 9:40amAtropine 1 % Drops Flwlvxwiivry0ZMTBJECLNGZAAHKLdttr at tvxkfyl7Asjyy 2020 1:00[facility] 2020 9:40amClozapine 150 mg Tablet,MbafeuynlxkkjeVmvgixhbnvcs709WCYPUdetr daily1 10[facility] 2020 1:00[facility] 2020 6:32amOmeprazole 20 mg Capsule,Delayed Release(Dr/Ec)Npnlvodiuoxx70OJHPGqtqb csflc5Mohcy 2020 1:00[facility] 2020 9:40amSimethicone 80 mg Tablet,ImurmzyeXulqlazdzfod92AFDW9-5 TIMES PER DAY as needed for Acid Yeujos060Ozjqk 2020 1:00[facility] 2020 6:31am Melatonin 5 mg OqzqubOdbzymqmdhtk7DPARZecqt at twlplbq6Diedi 2020 1:00am August 04, 2020 9:40amClozapine 150 mg tablet,lresollpjiglljHslhybjfptep884EDSQ Daily at bedtimeC[facility] 2020 6:32amMarch 2020 9:40amTrazodone 100 mg NyuartIragvtcrobtf456LQIZVphef at fxgbqyi61Woxbs 2020 12:00[facility] 2020 9:01amBuspirone 10 mg IbxtpaBcbdjntmsiin99EVDMExknx times fyyxq20Qsqun 2020 12:00[facility] 2020 9:00amClozapine (Clozaril) 25 mg Tablet Rhlvxyqebkkm31LRJLRkcfl at mhptuvn28Wkfgv 2020 12:00[facility] 2020 9:01amAripiprazole 15 mg KtlwzhIjxsirdubgpk36HQIDNhmni77Xsabu 2020 12:00am August 15, 2020 9:01amMelatonin 5 mg FomlhqOeuqkieiugoj21DWVHMspry at tqezhzu01 August 04, 2020 12:00amMarch 2020 9:00amOlanzapine 5 mg Tablet Tthchxmrpymx3JJTJM4A as needed for Cxefvocbv51Xitfp 18th, 2021 12:00amMarch 2020 9:01amOmeprazole 20 mg Capsule,Delayed Release(Dr/Ec)Pixpcxgakbui30FA DBXwgoc42JupmlAugust 04, 2020 9:39amMarch 2020 9:00amCyclobenzaprine 10 mg gsmwbdFtfsyn23HZGCGhntz times daily as needed for muscle erabz31Vunk 2023 12:00amUnknownPrednisone 20 mg yhqfvpPwutod85XWHVTamtj753Wqyp 2023 12:00am administer with food or milkUnknownLidocaine (Lidoderm) 5 % adhesive patch,ggawudiyqUzpeen5UZPJSTJEOIZPGolmw as needed for dazc994Bvms 2023 6:01pmleave on most painful area for up to 12 hrsUnknownOxcarbazepine (Trileptal) 150 mg jkdbxuPltnezwohrxu811XWGHLgktq dailyJune 2019 12:00am November 18, 2019 8:21amTAKE 1 TABLET BY MOUTH TWICE DAILYAtorvastatin (Lipitor) 20 mg dlqrggUxwcshauyhig09EXCNFeiqt at bedtimeJune 2019 12:002020 9:00amTAKE 1 TABLET BY MOUTH ONCE DAILYOndansetron Hcl 4 mg tablet Ovkpeloinssk8JALMAvbbn times dailyJune 2019 12:00amJun2019 12:43pm Melatonin 3 mg ffuiacFtczvncrnnlx5TSSWHxsvq at bedtimeJune 2019 12:00am November 18, 2019 8:21amTAKE 1 TABLET BY MOUTH AT BEDTIME FOR SLEEPCarbamazepine (Tegretol) 200 mg nxdlgePflbklegfkfl197AYSHZvfyr dailyJune 2019 12:00am November 04, 2019 12:37pmLevothyroxine (Synthroid) 50 mcg brrerwVqclzhzgzozi01FAD POEvery morningJun2019 12:00amMa2020 9:00amTAKE 1 TABLET BY MOUTH ONCE DAILY IN THE MORNING ON AN EMPTY STOMACH FOR 90 DAYSFenofibrate Nanocrystallized (Tricor) 145 mg hlvvfsBgfuqstyqoae564CVZSGimvvLwur 2019 12:00amMarch 2020 9:00amTAKE 1 TABLET BY MOUTH ONCE DAILY WITH FOOD Buspirone 10 mg cbgmskOvcbtzirfgyg40KNIBMqicm times dailyJune 2019 12:00am November 18, 2019 8:21amTAKE 1 TABLET BY MOUTH THREE TIMES DAILYFluphenazine Hcl 5 mg lhecbgPshvodbdiebv79WWPMAhjfpObtm 2019 12:00amJuly 2019 8:21amTAKE 3 TABLETS BY MOUTH ONCE UXRNQXohrzlew-Cvfu-Th-Calcium-Mins (Women's One Daily) 18 mg iron-400 mcg-500 mg Ca EcypcfSyqdnxkzmpju0YAIGKGhyppTpkl 2019 12:00amMarch 2020 9:40amCholecalciferol (Vitamin D3) (Vitamin D3) 50 mcg (2,000 unit) UihaqnLzxiiifdhjuo36JKVGJHmmtiTeem 2019 12:00amMarch 2020 9:00amOxcarbazepine 300 mg KrjvsyOpifstglppfb862UFDVCpqmg times aeytj9627 November 18, 2019 12:00amDeceer 2019 2:07pmMelatonin 3 mg Tablet Gjckvyjvumyj9HENQWslkp at gmurhfi565Yajn 2019 12:00Deceer 2019 2:07pmBuspirone 15 mg DtgtauZxtyiiacxyox00UTYWShwfs times pjjvg874PzrvNovember 18, 2019 12:00ce2019 9:57amChlorpromazine 50 mg ftdxnxNyaokjmngiuj43WWBL Uhdmxen792Aqlg 2019 12:00amDeceer 2019 2:06pmPaliperidone 9 mg tablet extended release 21dyVftubbjaqggp0AKFUYdpjn at ayziddf353Hthl 1st, 2020 12:00Deceer 2019 9:57amNicotine (Polacrilex) 2 mg ShwWvmyacgsszxh5DT VNFSLWG2I as needed for Nicotine Mmwhwtco471Hjbjems 2020 1:00amFebruary 2020 12:29pmDoxepin 100 mg MsfwkzxKjrsuuypceik927HKFPFidts at bmhhykg310 May 30, 2020 1:00am[facility] 2020 6:29amAripiprazole 20 mg Tablet Cippewqpmcws44JVXDPwbbr687Ewhkb 2020 12:002020 4:30pm Trazodone 100 mg NawuyuBwbnnctxzirh877BQYPPrnpi at zshauae605Rvhan 2020 12:00[facility]2022 4:24pmClozapine (Clozaril) 25 mg YerpjfGlptvzxpfgpr93ADRO Daily at qsfznkq707Jnyqd 2020 12:002020 4:32pmMultivitamin With Folic Acid (Thera) 400 mcg EsgfafBwrkcu5YDBQLNrvkh615Obwur 2020 12:00amUnknownAtorvastatin (Lipitor) 20 mg qomznwVchtozvykuna28AXQGWlasf at xrybfnm544Ezuxh 2020 9:002022 4:24pmTAKE 1 TABLET BY MOUTH ONCE DAILYLevothyroxine (Synthroid) 50 mcg qtbrokEcuguqpdncnv76GYQRYIrdjp tbqpvkv240Wdrah 2020 9:002022 4:24pmTAKE 1 TABLET BY MOUTH ONCE DAILY IN THE MORNING ON AN EMPTY STOMACH FOR 90 DAYSBuspirone 10 mg Tablet Bucnsk17WYQNCspyp times qjnfi8658Nppcn 2020 9:00amUnknownOmeprazole 20 mg Capsule,Delayed Release(Dr/Ec)Srpewaowdnpo97RARUKedgz933Yojyt 2020 9:00am October 30, 2022 4:24pmFenofibrate Nanocrystallized (Tricor) 145 mg tablet Szjdrwitxfgh012LDPIOgmyu298Pwzhy 2020 9:002020 4:30pmTAKE 1 TABLET BY MOUTH ONCE DAILY WITH FOODMelatonin 5 mg LcirbjAcvtduzwbres34WFBXRyyce at aigewkf443Xtaco 2020 9:2020 4:32pmCholecalciferol (Vitamin D3) (Vitamin D3) 50 mcg (2,000 unit) FyvcbuAzecupuiiubo82CNFWYKgged105 August 15, 2020 9:00amJune 2022 4:24pmLamotrigine 25 mg tablet Evrksswplgtw77BVMUHulnf at bedtime[place] 2020 12:00amAugust 2020 11:39amHydroxyzine Pamoate 25 mg azrrjnwByoutxcuugqo09AIQUCblnx times daily December 29, 2020 12:00amJune 2022 4:24pmAripiprazole 20 mg qrznqeQecpin43 MGPODaily at bedtime[place] 2020 4:29pmUnknownClozapine (Clozaril) 25 mg lcxwlaVyzbug363TEKBBkbhm at bedtimeWest [place] 2020 4:32pmUnknownLamotrigine 25 mg DpbafeLmalmf17UUJVBdnzy at iaequmo99425Clwemr 2020 12:00amUnknown Levothyroxine 50 mcg RbxasiCyjneh34SVKGFJKARG@40569562Cyvfzj 2020 12:00am UnknownGlycopyrrolate 1 mg ydhwcbQwjbgw2FZOPUghua at bedtime[facility] 2022 12:00amUnknownFenofibrate Nanocrystallized 145 mg odpubjGafcwe828YHAXAuczq morningOctober 30, 2022 12:00amUnknownCholecalciferol (Vitamin D3) (Vitamin D3) 50 mcg (2,000 unit) ctdyzkQflhlx11MAJIQFhuqoYehq 2022 4:23pmUnknown Immunizations Immunization Event Date Not Given Reason Dose Number Chocolatier Lot Number Reason(s) Given Vaccine Information Statement (VIS) Detail Administration Location COVID-19 mRNA Bivalent Booster (Pfizer) 2021 Quadrivalent Influenza (mdv)April 16, 2016Quadrivalent InfluenzaOct2016 Procedures Procedure Date Performed Status Urine Culture March 17, 2025 active Relevant Diagnostic Tests and/or Laboratory Data Laboratory Results Test Collection Date/Time Result Date/Time Result Interpretation Reference Range Result Comment Performing Site Corrected White Blood Count January 19, 2025 12:54pm January 19, 2025 2:00pm 5.9 10*3/uL 3.8-11.6[facility] [id number] [address] [place] [address] 36265Zbiiwqxfnof WBC CountSeptember 2024 12:54pmSeptember 2024 2:00pm5.9 10*3/uL3.8-11.6FMiddletown [facility] [id number] [address] [facility] [address]Dgg Blood CountSeptember 2024 12:54pmSeptember 2024 2:00pm4.74 10*6/uL3.60-5.00[facility] [id number] [address] [facility] [address]PcjcixkasbYcgidairl 2024 12:54pmSeptember 2024 2:00pm 13.9 g/dL11.8-15.4FMiddletown Hospital Ctr [id number] [address] [facility] [address]EmyiimiiguEjkbricvt 2024 12:54pmSeptember 2024 2:00pm 41.7 %34.0-46.4FMiddletown Hospital [facility]tr [id number] [address] [facility] [address]Dqfy Corpuscular VolumeSeptember 2024 12:54pmSeptember 2024 2:00pm88.0 fG26-797MszncmkcoAultman Hospital Ctr [id number] [address] [facility] [address]Nors Corpuscular HemoglobinSeptember 2024 12:54pmSeptember 2024 2:00pm29.3 pg24.7-34.3FMiddletown Hospital Ctr [id number] [address] [facility] [address]Rfry Corpuscular Hemoglobin ConcentSeptember 2024 12:54pm Nicolasa 2024 2:00pm33.3 g/dL32.0-35.0[facility] [id number] [address] [facility] [address]Rgs Cell Distribution WidthSeptember 2024 12:54pmSeptember 2024 2:00pm13.7 %11.9-15.3FMiddletown Hospital [facility]tr [id number] [address] [facility] [address]Tukapbwd CountSeptember 2024 12:54pmSeptember 2024 2:91bg283 10*3/oX611-598UfxabpzirAultman Hospital Ctr [id number] [address] [facility] [address]Ybat Platelet VolumeSept2024 12:54pmSept2024 2:00pm8.9 fL6.3-10.7FMiddletown Hospital Ctr [id number] [address] [facility] [address]844Ykbihxdxpgo (%) (Auto)January 19, 2025 12:54pmSept2024 2:00pm47.4 %.[facility] [id number] [address] [facility] [address]Bgbbvpbfibg (%) (Auto)January 19, 2025 12:54pmSept2024 2:00pm41.2 %.[facility] [id number] [address] [facility] [address]Hkzlagoem (%) (Auto)January 19, 2025 12:54pmSept2024 2:00pm6.1 %.[facility] [id number] [address] [facility] [address]Gvztlbumbna (%) (Auto)January 19, 2025 12:54pmSept2024 2:00pm4.2 %.[facility] [id number] [address] [facility] [address]Knsirmwwh (%) (Auto)January 19, 2025 12:54pmSept2024 2:00pm1.1 %.[facility] [id number] [address] [facility] [address]Iuikpacot RBC Relative Count (auto)January 19, 2025 12:54pm January 19, 2025 2:00pm0.1 /100{WBC}0-0.5FMiddletown Hospital Ctr [id number] [address] [facility] [address]Vaazcjxrfji # (Auto)January 19, 2025 12:54pmSept2024 2:00pm2.8 10*3/uL1.8-7.7FMiddletown Hospital Ctr [id number] [address] [facility] [address]Cxfyozyzldc # (Auto)January 19, 2025 12:54pmSeptember 2024 2:00pm2.4 10*3/uL1.00-4.8[facility] [id number] [address] [facility] [address]Qjnupxwyv # (Auto)January 19, 2025 12:54pmSeptember 2024 2:00pm0.4 10*3/uL0.0-0.8[facility] [id number] [address] [facility] [address]Uttvsmfrmlc # (Auto)January 19, 2025 12:54pmSeptember 2024 2:00pm0.2 10*3/uL0.0-0.45[facility] [id number] [address] [facility] [address]Qadkhmqrs # (Auto)January 19, 2025 12:54pmSeptember 2024 2:00pm0.1 10*3/uL0.0-0.2FMiddletown Hospital Ctr [id number] [address] [facility] [address] Advance Directives Advance Directive Response Recorded Date/ Time Advance Directives No March 11, 2017 3:54pm Insurance Providers Guarantor Jessica Hobbs r Address [address] [place] [id number] Info.Home Phone: Payer Group Member ID Coverage Type Subscriber Relationship to Subscriber Effective Date Expiration Date Medicaid [id number] E Kochendoerfer Id: [id number] [address] [facility] [address] Home Phone: Email: NONESelfMedicare [id number] E Kochendoerfer Id: [id number] [address] [facility] [address] Home Phone: Email: NONESelfMedicare Nonpatient [id number] E Kochendoerfer Id: [id number] [address] [facility] [address] Home Phone: Email: NONESelfHumana [facility] Id: [id number] E Kochendoerfer Id: [id number] [address] [facility] [address] Home Phone: Email: DrakeCAP/HFA/FAP Active 100% thru [address] [facility] [address] Work Phone: [phone] [id number] Jayleen Makenzie Id: [id number] [address] [facility] [address] Home Phone: [facility]: [facility] Encounters Encounter Location(s) Arrival/Admit Date Discharge/Departure Date Discharge/Departure Disposition Provider(s) Departed Clinical -Lab [facility] January 19, 2025 12:51pm January 19, 2025 12:52pm Discharged to home care or self care (routine discharge) Antonia Finn MD Registered [facility] February 04, 2025 2:08pm BELLA Downeyeparted [facility]erred-[facility] 2024 6:00pmOctober 2024 6:01pmDischarged to home care or self care (routine discharge)Fatoumata Shah PA-C Plan of Treatment Future Tests Future scheduled test information is unavailable Pending Tests Test Name Ordered Date Scheduled Date Urine Culture March 17, 2025 6:00pm Future Visits Future appointment information is unavailable Future Procedures Procedure Name Ordered Date Scheduled Date Urine Culture March 18, 2025 6:26am Octobe r 2024 6:00pm Future Medications Future medication information is unavailable Patient Instructions Patient instructions are unavailable
--- OUTSIDE RECORDS SUMMARY | 2025-03-22 11:16 | XMS_ITS | Patient Health Record ---
Author Organization [facility] es Address [address] [place] [address] Care Team Providers Care Welder Assistant Name Role Phone Ruthie Samuel Primary Care Provider [phone] Toñito Lizarraga Unavailable [phone] Komal Russell Unavailable [phone] Reason For Referral No Information Encounters Encounter Location Date Provider Diagnosis [facility] [address] [place] [address] 06/04/2024 Ruthie Samuel Encounter for dental examination [...]
[2025-03-22 11:49] LABS: Hematocrit 42.6 % (36.0-48.0); Hemoglobin 14.0 g/dL (12.0-16.0); Mean Corpuscular HGB Conc 32.9 g/dL (29.9-35.2); Mean Corpuscular Hemoglobin 29.5 pg (26.7-34.0); Mean Corpuscular Volume 89.7 fL (81.0-99.0); Platelet Count 275 10^3/uL (150-450); Red Blood Count 4.75 10^6/uL (4.20-5.40); White Blood Count 10.1 10^3/uL (4.0-11.0)
[2025-03-22 15:06] LABS: Basophils Abs Manual 0.20 10^3/uL (0.00-0.10); Basophils Percent Manual 2.0 % (0.2-2.0); Eosinophils Absolute Manual 2.22 10^3/uL (0.00-0.70); Eosinophils Percent Manual 22.0 % (0.9-7.0); Lymphocytes Absolute Manual 2.42 10^3/uL (1.20-3.80); Lymphocytes Percent Manual 24.0 % (20.5-60.0); Monocytes Absolute Manual 0.30 10^3/uL (0.30-0.80); Monocytes Percent Manual 3.0 % (1.7-12.0); Segmented Neut Absolute Manual 4.94 10^3/uL (1.4-6.5); Segmented Neutrophils % Manual 49.0 (43.0-75.0)
== END 2025-03-22 11:12 | disposition home or self-care (01) ==
LOC: LAB 11:13
PROVIDERS: PCP Nurse Practitioner; Visit Provider Psychiatry & Neurology Psychiatry
DX: F25.0 Schizoaffective disorder, bipolar type (principal); Z79.899 Other long term (current) drug therapy
CPT/HCPCS: 36415; 85007; 85027

== ENCOUNTER 2025-03-24 13:46 | Outpatient (OUT) | payer MEDICARE, SELFPAY ==
--- OUTSIDE RECORDS SUMMARY | 2024-02-10 08:30 | XMS_ITS ---
Author Organization [facility] Servic es Address [address] [place] [address] Care Team Providers Care Truck Loader And Unloader Name Role Phone Ruthie Samuel Primary Care Provider Alejo Jill Unavailable [phone] REASON FOR VISIT PROPHY BW EXAM Encounters Encounter Location Date Provider Diagnosis [facility] [address] [place] [address] 02/10/2024 Jill Pauljonathan Plan Of Treatment No Information Progress Notes * SKYE SALESOB:05/1979 (45 yo F)Acc No.[id number]:02/10/2024 Patient:?ARTHUR SALES :?Jill DhillonDOB:1980???Age:44 Y???Sex: FemaleDate:02/10/2024hone:[phone]:[address], [address] [id number]:Ruthie Samuel Subjective: * Chief Complaints: * P ROPHY BW EXAM * Electronic signature of Jill Dhillon on 03/24/2025 at 01:48 PM ESTSign off status: Pending * Provider: Jim Dhillon Date: 0 02/10/2024 Generated for Printing/Faxing/eTransmitting on:?03/24/2025 01:48 PM EST
--- OUTSIDE RECORDS SUMMARY | 2024-03-20 10:00 | XMS_ITS ---
Author Organization [facility] Servic es Address [address] [place] [address] Care Team Providers Care Oyster Shucker Name Role Phone Ruthie Samuel Primary Care Provider Dr. Toñito Lizarraga Unavailable [phone] REASON FOR VISIT toothpain Encounters Encounter Location Date Provider Diagnosis [facility] [address] [place] [address] 03/20/2024 Toñito Lizarraga Plan Of Treatment No Information Progress Notes * SKYE SALESOB:05/1979 (45 yo F)Acc No.[id number]:03/20/2024 Patient:?BONGERIKAARTHUR YATES :?Toñito Lizarraga DDSDOB:1980???Age:44 Y???Sex: FemaleDate:03/20/2024hone:[phone]:Vanda2 [address], [place] [id number]:Ruthie Samuel Subjective: * Chief Complaints: * T oothpain * Electronic signature of Dr. Toñito Lizarraga , DMD, [id number] on 03/24/2025 at 01:49 PM ESTSign off status: Pending * Provider: Rm Lizarraga DDS Date: 05/20/2023 Generated for Printing/Faxing/eTransmitting on:?03/24/2025 01:49 PM EST
--- OUTSIDE RECORDS SUMMARY | 2024-03-25 09:00 | XMS_ITS ---
Author Organization [facility] Servic es Address [address] [place] [address] Care Team Providers Care Mold Maker Helper Name Role Phone Ruthie Samuel Primary Care Provider Dr. Toñito Lizarraga Unavailable [phone] REASON FOR VISIT sensitivity Encounters Encounter Location Date Provider Diagnosis [facility] [address] [place] [address] 03/25/2024 Toñito Lizarraga Plan Of Treatment No Information Progress Notes * SKYE SALESOB:05/1979 (45 yo F)Acc No.[id number]:03/25/2024 Patient:?ARTHUR SALES :?Toñito Lizarraga DDSDOB:1980???Age:44 Y???Sex: FemaleDate:4Phone:[phone]:[address], [place] [id number]:Ruthie Samuel Subjective: * Chief Complaints: * S ensitivity * Electronic signature of Dr. Toñito Lizarraga , DMD, [id number] on 03/24/2025 at 01:49 PM ESTSign off status: Pending * Provider: Rm Lizarraga DDS Date: 05/25/2023 Generated for Printing/Faxing/eTransmitting on:?03/24/2025 01:49 PM EST
--- OUTSIDE RECORDS SUMMARY | 2024-07-17 11:05 | XMS_ITS ---
Author Organization [facility] Servic es Address [address] [place] [address] Care Team Providers Care Pig Farmer Name Role Phone Ruthie Samuel Primary Care Provider [phone] Dr. Toñito Lizarraga Unavailable [phone] REASON FOR VISIT FILLING Encounters Encounter Location Date Provider Diagnosis [facility] Services [address] [place] [address] 07/17/2024 Toñito Lizarraga Plan Of Treatment No Information Progress Notes * SKYE SALESOB:05/1979 (45 yo F)Acc No.[id number]:07/17/2024 Patient:?ARTHUR SALES :?Toñito Lizarraga DDSDOB:1980???Age:44 Y???Sex: FemaleDate:07/17/2024Phone:[phone]:[address], [place] [id number]:Ruthie Samuel Subjective: * Chief Complaints: * F ILLING * Electronic signature of Dr. Toñito Lizarraga , DMD, [id number] on 03/24/2025 at 01:49 PM ESTSign off status: Pending * Provider: Rm Lizarraga DDS Date: 0 07/17/2024 Generated for Printing/Faxing/eTransmitting on:?03/24/2025 01:49 PM EST
--- OUTSIDE RECORDS SUMMARY | 2024-08-14 06:50 | XMS_ITS ---
Author Organization [facility] Servic es Address [address] [place] [address] Care Team Providers Care Instrument Repair Technician Name Role Phone Ruthie Samuel Primary Care Provider [phone] Dr. Toñito Lizarraga Unavailable [phone] REASON FOR VISIT FILLING Encounters Encounter Location Date Provider Diagnosis [facility] [address] [place] [address] 08/14/2024 Toñito Lizarraga Plan Of Treatment No Information Progress Notes * SKYE SALESOB:05/1979 (45 yo F)Acc No.[id number]:08/14/2024 Patient:?ARTHUR SALES :?Toñito Lizarraga DDSDOB:1980???Age:44 Y???Sex: FemaleDate:08/14/2024Phone:[phone]:[address], [place] [id number]:Ruthie Samuel Subjective: * Chief Complaints: * F ILLING * Electronic signature of Dr. Toñito Lizarraga , DMD, [id number] on 03/24/2025 at 01:49 PM ESTSign off status: Pending * Provider: Rm Lizarraga DDS Date: 0 08/14/2024 Generated for Printing/Faxing/eTransmitting on:?03/24/2025 01:49 PM EST
--- OUTSIDE RECORDS SUMMARY | 2024-10-15 10:00 | XMS_ITS ---
Author Organization [facility] Servic es Address [address] [place] [address] Care Team Providers Care Inventory Control Analyst Name Role Phone Ruthie Samuel Primary Care Provider [phone] Komal Russell Unavailable [phone] REASON FOR VISIT PROPHY Encounters Encounter Location Date Provider Diagnosis [facility] Services [address] [place] [address] 10/15/2024 Komal Russell Plan Of Treatment No Information Progress Notes * SKYE SALESOB:05/1979 (45 yo F)Acc No.[id number]:10/15/2024 Patient:?ARTHUR SALES :?Komal RussellDOB:1980???Age:44 Y???Sex: FemaleDate:10/15/2024Phone:[phone]:[address], [address] [place] [id number]:Ruthie Samuel Subjective: * Chief Complaints: * P ROPHY * Electronic signature of Komal Russell on 03/24/2025 at 01:49 PM ESTSign off status: Pending * Provider: Danielle Russell Date: 0 10/15/2024 Generated for Printing/Faxing/eTransmitting on:?03/24/2025 01:49 PM EST
--- OUTSIDE RECORDS SUMMARY | 2025-03-04 06:52 | XMS_ITS | Continuity of Care Document ---
Author Organization [facility] Address [address] [place] [address] Phone Care Team Providers Care Block Feeder Name Role Phone Maria Castro Unavailable Unavailable [...] Prophylaxis Adult [employer] For Control Of [place] Dis Nov Oral Hygiene Instruction Moderate Risk ROUTINE VENIPUNCTURE OFFICE/OUTPATIENT VISIT, EST GLYCOSYLATED HEMOGLOBIN TEST OFFICE/OUTPATIENT VISIT, EST Prophylaxis Adult [employer] For [employer] Of [place] Dis May Oral Hygiene Instruction Moderate Risk [...] Low Risk [employer] For [employer] Of [place] Dis Jun Oral Hygiene Instruction OFFICE/OUTPATIENT VISIT, EST ROUTINE VENIPUNCTURE Prophylaxis Adult Oral Hygiene Instruction OFFICE/OUTPATIENT VISIT, NEW Oral Hygiene Instruction Prophylaxis Adult Oral Hygiene Instruction Periodic Oral Eval Estab Patient 2020 [employer] For [employer] Of [place] Dis Jan OFFICE/OUTPATIENT VISIT, NEW Periodic Oral [...] Diagnoses Date Provider Providers Copied on Encounter [facility], [address] [place] [address], [place], [place], [id number] , [place] tel:[phone] [facility]HOVE No Information 5 David Sifuentes. [address] [place] [address], [address], [place]. tel: [phone] OFFICE/OUTPA TIENT VISIT, EST [facility], [address] [place] [address], [id number] , [place] tel: [phone] [facility] F/U Hyperlipidemia (chief complaint) Breast cancer screening by mammogramPrediab etesBody mass index [BMI]30.0-30.9, adult 5 David Sifuentes. [address] [place] [address], [id number], [place]. tel: [phone] [facility], [address] [place] [address], [id number] , [place] tel: [phone] [facility] No Information 5 Sadia Armijo. [address] [place] [address], [id number] , [place]. tel: [phone] [facility], [address] [place] [address], [id number] , [place] tel: [phone] [facility] Medicare preventive (chief complaint) Body mass index [BMI] 31.0-31.9, adultEncounter for initial preventive physical examination covered by Medicare 5 David Sifuentes. [address] [place] [address], [address], [place]. tel: [phone] [facility], [address] [place] [address], [id number] , [place] tel: [phone] [facility] [place] (chief complaint) Encounter for screening for dental disorders 5 Qiana Cunningham. . tel: [phone] [facility], [address] [place] [address], [id number] , [place] tel: [phone] [facility] No Information 5 David Sifuentes. [address] [place] [address], [address], [place]. tel: [phone] OFFICE/OUTPA TIENT VISIT, [facility], [address] [place] [address], [id number] , [place] tel: [phone] [facility] Wellness exam and lab draw (chief complaint)Lab draw (chief complaint) Body mass index [BMI]30.0-30.9, adultHypothyroid ism (acquired)Predia betesVitamin D deficiencyMixed hyperlipidemiaAn xiety with depressionAdult general medical exam 5 David Sifuentes. [address] [place] [address], [address], [place]. tel: [phone] OFFICE/OUTPA TIENT VISIT, [facility], [address] [place] [address], [id number] , [place] tel: [phone] [facility] Possible UTI (chief complaint) DysuriaPrediabet esBody mass index [BMI] 31.0-31.9, adult 5 David Sifuentes. [address] [place] [address], [address], [place]. tel: [phone] [facility], [address] [place] [address], [id number] , [place] tel: [phone] [facility] pa (chief complaint) Encounter for screening for dental disordersBody mass index [BMI] 32.0-32.9, adult 5 Qiana Cunningham. . tel: [phone] OFFICE/OUTPA TIENT VISIT, [facility], [address] [place] [address], [id number] , [place] tel: [phone] [facility] Office visit (chief complaint) Body mass index [BMI] 32.0-32.9, adultHypothyroid ism (acquired) 5 David Sifuentes. [address] [place] [address], [address], [place]. tel: [phone] OFFICE/OUTPA TIENT VISIT, [facility], [address] [place] [address], [id number] , [place] tel: [phone] [facility] Polydipsia 4 David Sifuentes. [address] [place] [address], [address], [place]. tel: [phone] [facility], [address] [place] [address], [id number] , [place] tel: [phone] [facility] pe (chief complaint) Encounter for screening for dental disorders 4 Qiana Cunningham. . tel: [phone] OFFICE/OUTPA TIENT VISIT, [facility], [address] [place] [address], [id number] , [place] tel: [phone] [facility] annual exam (chief complaint) Encounter for gynecological examination (general) (routine) without abnormal findingsBody mass index [BMI]30.0-30.9, adult 4 Dakota SOCORRO Gonsalez. [address] [place] [address], [id number] , [place]. tel: [phone] OFFICE/OUTPA TIENT VISIT, [facility], [address] [place] [address], [id number] , [place] tel: [phone] CRISTIANO Foster office visit (chief complaint)lab draw (chief complaint) Adult general medical examMixed hyperlipidemiaVi tamin D deficiencyAnxiet y with depressionHypoth yroidism (acquired)Predia betesBody mass index [BMI]30.0-30.9, adult 4 David Sifuentes. [address] [place] [address], [address], [place]. tel: [phone] OFFICE/OUTPA TIENT VISIT, [facility], [address] [place] [address], [id number] , [place] tel: [phone] CRISTIANO Foster f/u BP (chief complaint) Body mass index [BMI] 32.0-32.9, adultElevated blood pressure reading 3 David Sifuentes. [address] [place] [address], [address], [place]. tel: [phone] OFFICE/OUTPA TIENT VISIT, [facility], [address] [place] [address], [id number] , [place] tel: [phone] [facility] follow up (chief complaint)Lab draw (chief complaint) Hypothyroidism (acquired)Body mass index [BMI]30.0-30.9, adultRacing heart beatElevated blood pressure reading 3 West SUSHIL Sifuentes. [address] [place] [address], [address], [place]. tel: [phone] OFFICE/OUTPA TIENT VISIT, [facility], [address] [place] [address], [id number] , [place] tel: [phone] [facility] Wellness Visit (chief complaint)Lab Draw (chief complaint) Body mass index [BMI] 28.0-28.9, adultEncntr for general adult medical exam w/o abnormal findingsHypothyr oidism (acquired)Anxiet y with depressionMixed hyperlipidemiaEn counter for screening for HIVEncounter for hepatitis C screening test for low risk patientMusculosk eletal chest pain 3 David Sifuentes. [address] [place] [address], [address], [place]. tel: [phone] OFFICE/OUTPA TIENT VISIT, [facility], [address] [place] [address], [id number] , [place] tel: [phone] [facility] c/o muscle spasms (chief complaint) Body mass index [BMI]30.0-30.9, adultMuscle ache of extremity 3 West SUSHIL Sifuentes. [address] [place] [address], [address], [place]. tel: [phone] [facility], [address] [place] [address], [id number] , [place] tel: [phone] [facility] filling (chief complaint) Encounter for screening for dental disorders 3 Qiana Cunningham. . tel: [phone] [facility], [address] [place] [address], [id number] , [place] tel: [phone] [facility] Adult prophy (chief complaint) Encounter for screening for dental disorders 3 Qiana Cunningham. . tel: [phone] OFFICE/OUTPA TIENT VISIT, [facility], [address] [place] [address], [id number] , [place] tel: [phone] [facility] Cristian F/U 6 Month (chief complaint)Lab Draw (chief complaint) Hypothyroidism (acquired)Histor y of Erb's palsyBody mass index [BMI] 26.0-26.9, adult 2 David Sifuentes. [address] [place] [address], [address], [place]. tel: [phone] [facility], [address] [place] [address], [id number] , [place] tel: [phone] [facility] prophy (chief complaint) Encounter for screening for dental disorders 2 Clari Delgado. [address] [place] [address], [address], [place]. tel: [phone] OFFICE/OUTPA TIENT VISIT, [facility], [address] [place] [address], [id number] , [place] tel: [phone] [facility] Cristian est care (chief complaint)labs (chief complaint) Hypothyroidism (acquired)Body mass index [BMI] 28.0-28.9, adultSchizophren ia, chronic conditionAnxiety with depressionMixed hyperlipidemiaSi alorrheaEncounte r to establish careVitamin D deficiency 2 David Sifuentes. [address] [place] [address], [address], [place]. tel: [phone] [facility], [address] [place] [address], [id number] , [place] tel: [phone] [facility] Prophy (chief complaint) Encounter for screening for dental disorders 1 Eb Lovell. [address] [place] [address], [id number] , [place]. tel: [phone] [facility], [address] [place] [address], [id number] , [place] tel: [phone] [facility] DN (chief complaint) Encounter for screening for dental disorders 1 Romeo Peres. [address] [place], [address], [place]. tel: [phone] OFFICE/OUTPA TIENT VISIT, [facility], [address] [place], [place], [id number] , [place] tel: [phone] [facility] [place] est care (chief complaint) Anxiety with depressionSchizo phrenia, chronic conditionDyslipi demia, goal LDL below 100Hypothyroidis m (acquired)Encoun ter to establish care with new doctor 0 Lindsay Ferrer. [address] [place] [address], [id number] , [place]. tel: [phone] [facility], [address] [place] [address], [id number] , [place] tel: [phone] [facility] prophy (chief complaint) Encounter for screening for dental disorders 7 Jennifer Fox. [address] [place], [place], [id number] , [place]. tel: [phone] [facility], [address] [place] [address], [id number] , [place] tel: [phone] [facility] prophy (chief complaint) Encounter for screening for dental disorders 7 Taylor DMD Jinbo. [address] [place] [address], [address], [place]. tel: [phone] [facility], [address] [place] [address], [id number] , [place] tel: [phone] [facility] PROPHY (chief complaint) Encounter for screening for dental disorders 6 Gutierrez DMD Cassie. [address] [place] [address], [id number] , [place]. tel: [phone] [facility], [address] [place] [address], [id number] , [place] tel: [phone] [facility] prophy (chief complaint) Encounter for screening for dental disorders 6 [facility]. [address] [facility] [place], [id number] , [place]. tel: [phone] [facility], [address] [facility] [place], [id number] , [place] tel: [phone] [facility] Dental examination [facility]. [address] [facility] [place], [id number] , [place]. tel: [phone] [facility], [address] [facility], [id number] , [place] tel: [phone] [facility] prophy (chief complaint) Dental examination [facility]. [address] [facility], [id number] , [place]. tel: [phone] [facility], [address] [facility] [place], [place], [id number] , [place] tel: [phone] [facility] Dental examination [facility]. [address] [facility] [place], [place], [id number] , [place]. tel: [phone] [facility], [address] [facility] [place], [place], [id number] , [place] tel: [phone] [facility] Dental examination [facility]. [address] [facility] [place], [place], [id number] , [place]. tel: [phone] [facility], [address] [facility] [place], [place], [id number] , [place] tel: [phone] [facility] Dental examination [facility]. [address] [facility], [id number] , [place]. tel: [phone] [facility], [address] [place] [address] [place], [place], [id number] , [place] tel: [phone] [facility] Dental examination [facility]. [address] [place], [place], [id number] , [place]. tel: [phone] [facility], [address] [place], [place], [id number] , [place] tel: [phone] [facility] Dental examination August. [address] [place], [place], [id number] , [place]. tel: [phone] Family History Family Member Type Diagnosis Age [...] ry Payers Payer name Insurance type Covered alliance party ID Authoriza tidali(s) Medicare PPS MB [id number] Social History Type Description Quantity Date Captured [...] A due Goal Influenza vaccine. Due on due [...] e Goal RLP. Due on due Goal Lipid [...] Goal PRAPARE ASSESSMENT. Due on due Goal Hepatitis C screening. Due o n due Goal Unhealthy drug use screening . Due on due Goal Dietary management education , guidance, and counseling completed Goal Lipid panel. Due on 028 due Goal Unhealthy drug use screening . [...] education , guidance, and counseling completed Goal Tdap. Due on due Goal Tdap [...] PRAPARE ASSESSMENT. Due on F due Goal Influenza vaccine. Due on Oc due Goal PRAPARE ASSESSMENT. Due on N due Goal RLP. Due on due Goal Lipid panel. Due on due Goal Depression screening. Due on due Goal Tdap. Due on due Goal Influenza vaccine. Due on due Goal Lifestyle education regardin g diet completed Goal Depression screening. Due on due Goal RLP. Due on due Goal Tdap. Due on due Goal Influenza vaccine. Due on due Goal Lipid panel. Due on due Goal Weight-reducing diet educati on completed Referral Ordered: MAMMOGRAM, SCREENING [id number], [id number] Kochendoerfer, HollyBOOKED History Of Present Illness Encounter Date Complaint History Of Prese nt Illness F/U Hyperlipidemia No Health iss ues to report today.Medications: Changed Buspirine dosage to match what patient is taking as well as adding Celexa.Flu: Given today//JWHupp RNAbove noted. Has no issues/concerns today. Denies any recent illnesses or hospitalizations. Continues seeing Dr Finn at [facility] for psychiatry. Med changes as above and [...] ROBLES Wellness exam and lab draw [facility] for annual wellness exam and lab draw. Mammogram done 03/2024. Last pap done 10/2023. Denies other problems/concerns. Leanne Adame noted. Continues seeing Dr Finn at [facility] for psychiatry. No counseling services. Started buspirone [...] not had any recent hospitalizations. [facility]/2023WILDER Heard pe irma annual exam The client does not drink alcohol. Additional information: Patient is here to establish care. She has had a hysterectomy and they also took her ovaries. she does get some hot flashes, but they are starting to improve. Denies other CHEF GERMAN problems at this time. . lab draw [...] not had any recent hospitalizations. [facility] in [place] left; had full hyster age 41yrs was [...] increased anxiety. Here today to recheck symptoms. [facility] psychiatry provider Dr Bailey recently [...] continue under care with [facility] psychiatry. Denies any change in medications. WILDER [...] Continues under psychiatry with [facility]- Dr Iqbal every 3 months, took off trazodone and hydroxyzine [facility] in [place]; last seen 1 year ago; total hystJWest, ROLL HAULER c/o muscle spasms Pt here with c [...] very unhealthy. Denies any other issues/concerns. Félix, ROLL HAULER filling filling Adult prophy Adult Prophy Lab [...] Requests [facility]. Is interested in establishing care for woman's health; does not want to drive to [place] for exam any longer. Will call to make appt later. Influenza and COVID vaccine obtained approx 1 month ago. Félix ROLL HAULER prophy prophy labs Lab drawn from l t AC x1 attempt successful.Rand Lopez RN est care Presents for est ablishing care. Was seeing Dr. Browning before but would not like to continue with her anymore. [facility]es the health dept for dental. Sees a psychiatrist at [facility] and dr. Antonio in [place]. States she has already seen CHEF GERMAN this year. States she had 2020 mammogram at [facility]. Needs medication refills on all medications not [...] October, normally sees every 3 months. Has binder caser, Jacinda. Also participates in group therapy at [facility]. Dx with schizoaffective disorder, anxiety, depression. Previous [...] [facility] mammogram order through them, has orderFélix, ROLL HAULER Prophy DN DN est care Pt here to [facility]. Pt denies any issues or concerns. [...] She does drink a lot of tea. 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 History of hysterectomy. [...] Continue with erica atment plan as per [facility] counseling and recovery2. If you have any thoughts of harming yourself or others; go to the ER or: -Call (available 10/12)-Crisis Text Line (available 10/12) text 4HOPE to [phone]-Btafzswdf Hope Line (available 8a-Midnight) Call [phone] ([phone]) Related to Anxiety with depression 1. Labs [...] abd or flank pain Related to Dysuria Giving encouragement to exercise Related to Body [...] Continue with erica atment plan as per [facility] recovery2. If you have any thoughts of harming yourself or others; go to the ER or: -Call 8 (available 10/12)-Crisis Text Line (available 10/12) text 4HOPE to 810757-Aidyolkfo Hope Line (available 8a-Midnight) Call [phone] ([phone]) Related to Anxiety with depression 1. Checking A1C leve l2. Decrease conc sweets and excessive carbohydrates.3. Stop/decrease smoking Related to Prediabetes 1. Take daily vitamin d Related to [...] Continue with erica atment plan as per [facility]. Call hotline number at [...] Continue with erica atment plan as per [facility] recovery[facility]. Call hotline number at [...] to Body mass index [BMI] 28.0-28.9, adult Weight-reducing diet education R elated to Body mass index [BMI] 28.0-28.9, adult Assessments Type Assessment Date No Information Patient Care Teams Name Effective Dates (start - stop) Status Members No Information
--- NOTE | 2025-03-24 13:49 | MM_ITS ---
Patient Name: ARTHUR SALES MR#: [id number] : 1980 Exam Date: 03/24/2025 Ordering Doctor: NEHAL DOUGLAS RADIOLOGY REPORT PROCEDURE: MM TOMOSYNTHESIS SCREENING BI COMPARISON: MM TOMOSYNTHESIS SCREENING BI, 04/13/2024. MM TOMOSYNTHESIS SCREENING BI, 04/10/2023. MM TOMOSYNTHESIS SCREENING BI, 04/09/2022. INDICATIONS: Screening Calculator Name NCI Breast Cancer Risk Assessment Tool 5 Year Breast Cancer Risk 0.60% Lifetime Breast Cancer Risk 7.10% Personal Breast Cancer No Personal Ovarian Cancer No Treatments None Family Cancers None LOCATION: [facility] BREAST COMPOSITION: There are scattered areas of fibroglandular density. FINDINGS: RIGHT BREAST: No significant suspicious finding. Benign-appearing calcifications are present. LEFT BREAST: No significant suspicious finding. Benign-appearing calcifications are present. DIAGNOSTIC CATEGORY 2--BENIGN FINDING. NO CHANGE FROM COMPARISON. RECOMMENDATIONS: ROUTINE MAMMOGRAM AND CLINICAL EVALUATION IN 12 MONTHS. Dictated by: Archie Schultz MD on 03/25/2025 at 11:01 Approved by: Archie Schultz MD on 03/25/2025 at 11:05
--- OUTSIDE RECORDS SUMMARY | 2025-03-24 13:49 | XMS_ITS | Patient Health Record ---
Author Organization [facility] es Address [address] [place] [address] Care Team Providers Care Bridge/Structure Inspection Team Leader Name Role Phone Ruthie Samuel Primary Care Provider Dr. Toñito Lizarraga Unavailable [phone] Komal Russell Unavailable [phone] Reason For Referral No Information Encounters Encounter Location Date Provider Diagnosis [facility] [address] [place] [address] 06/04/2024 Ruthie Samuel Encounter for dental examination [...]
== END 2025-03-24 13:47 | disposition home or self-care (01) ==
LOC: MAMMO 13:46
PROVIDERS: PCP Nurse Practitioner; Visit Provider Nurse Practitioner
DX: Z12.31 Encounter for screening mammogram for malignant neoplasm of breast (principal)
CPT/HCPCS: 77063; 77067

== ENCOUNTER 2025-04-19 12:40 | Outpatient (OUT) | payer MEDICARE, SELFPAY ==
--- OUTSIDE RECORDS SUMMARY | 2025-03-04 06:52 | XMS_ITS | Continuity of Care Document ---
Author Organization [facility] Address [address] [place] [address] Phone Care Team Providers Care Software Controls Engineer Name Role Phone Maria Castro Unavailable Unavailable Allergies, Adverse Reactions, Alerts Substance [...] times every day 20 MG - Active Celexa 10 mg tablet take 1 tablet by oral route every day 10 MG - Active Vitamin C 1,000 mg [...] Comments No Known Problems Procedures Procedure Date OFFICE/OUTPATIENT VISIT, EST Admin influenza virus vac FLU VACCINE NO PRESERV 3 & > Ppps, subseq visit Prophylaxis Adult Nutrit Couns For Control Of Motley Dis Nov Oral Hygiene Instruction Moderate Risk ROUTINE VENIPUNCTURE OFFICE/OUTPATIENT VISIT, EST GLYCOSYLATED HEMOGLOBIN TEST OFFICE/OUTPATIENT VISIT, EST Prophylaxis Adult Nutrit Couns For Control Of Motley Dis May Oral Hygiene Instruction Moderate Risk [...] Low Risk Nutrit Couns For Control Of Motley Dis Jun Oral Hygiene Instruction OFFICE/OUTPATIENT VISIT, EST ROUTINE VENIPUNCTURE Prophylaxis Adult Oral Hygiene Instruction OFFICE/OUTPATIENT VISIT, NEW Oral Hygiene Instruction Prophylaxis Adult Oral Hygiene Instruction Periodic Oral Eval Estab Patient 2020 Panoramic Film Bitew[employer] Nutrit Couns For Control Of Motley Dis Jan OFFICE/OUTPATIENT VISIT, NEW Periodic Oral [...] Diagnoses Date Provider Providers Copied on Encounter [facility], [address] [place] [address], [place], [place], [id number] , [place] tel:[phone] EHOVE No Information 5 David Sifuentes. [address] [place] [address], [id number], [place]. tel: [phone] OFFICE/OUTPA TIENT VISIT, EST [facility], [address] [place] [address], [id number] , [place] tel: [phone] [facility] F/U Hyperlipidemia (chief complaint) Breast cancer screening by mammogramPrediab etesBody mass index [BMI]30.0-30.9, adult 5 David Sifuentes. [address] [place] [address], [address], [place]. tel: [phone] [facility], [address] [place] [address], [id number] , [place] tel: [phone] [facility] No Information 5 Sadia Armijo. [address] [place] [address], [id number] , [place]. tel: [phone] [facility], [address] [place] [address], [id number] , [place] tel: [phone] [facility] Medicare preventive (chief complaint) Body mass index [BMI] 31.0-31.9, adultEncounter for initial preventive physical examination covered by Medicare 5 David Sifuentes. [address] [place] [address], [address], [place]. tel: [phone] [facility], [address] [place] [address], [id number] , [place] tel: [phone] Dental Clinic PA (chief complaint) Encounter for screening for dental disorders 5 Qiana Cunningham. . tel: [phone] [facility], [address] [place] [address], [id number] , [place] tel: [phone] [facility] No Information 5 David Sifuentes. [address] [place] [address], [address], [place]. tel: [phone] OFFICE/OUTPA TIENT VISIT, [facility], [address] [place] [address], [id number] , [place] tel: [phone] [facility] Wellness exam and lab draw (chief complaint)Lab draw (chief complaint) Body mass index [BMI]30.0-30.9, adultHypothyroid ism (acquired)Predia betesVitamin D deficiencyMixed hyperlipidemiaAn xiety with depressionAdult general medical exam 5 David Sifuentes. [address] [place] [address], [address], [place]. tel: [phone] OFFICE/OUTPA TIENT VISIT, [facility], [address] [place] [address], [id number] , [place] tel: [phone] [facility] Possible UTI (chief complaint) DysuriaPrediabet esBody mass index [BMI] 31.0-31.9, adult 5 David Sifuentes. [address] [place] [address], [address], [place]. tel: [phone] [facility], [address] [place] [address], [id number] , [place] tel: [phone] Dental Clinic pa (chief complaint) Encounter for screening for dental disordersBody mass index [BMI] 32.0-32.9, adult 5 Qiana Cunningham. . tel: [phone] OFFICE/OUTPA TIENT VISIT, [facility], [address] [place] [address], [id number] , [place] tel: [phone] [facility] Office visit (chief complaint) Body mass index [BMI] 32.0-32.9, adultHypothyroid ism (acquired) 5 David Sifuentes. [address] [place] [address], [address], [place]. tel: [phone] OFFICE/OUTPA TIENT VISIT, [facility], [address] [place] [address], [id number] , [place] tel: [phone] [facility] Polydipsia 4 David Sifuentes. [address] [place] [address], [address], [place]. tel: [phone] [facility], [address] [place] [address], [id number] , [place] tel: [phone] Dental Clinic pe (chief complaint) Encounter for screening for dental disorders 4 Qiana Cunningham. . tel: [phone] OFFICE/OUTPA TIENT VISIT, [facility], [address] [place] [address], [id number] , [place] tel: [phone] [facility] annual exam (chief complaint) Encounter for gynecological examination (general) (routine) without abnormal findingsBody mass index [BMI]30.0-30.9, adult 4 Dakota SOCORRO Gonsalez. [address] [place] [address], [id number] , [place]. tel: [phone] OFFICE/OUTPA TIENT VISIT, [facility], [address] [place] [address], [id number] , [place] tel: [phone] CRISTIANO Foster office visit (chief complaint)lab draw (chief complaint) Adult general medical examMixed hyperlipidemiaVi tamin D deficiencyAnxiet y with depressionHypoth yroidism (acquired)Predia betesBody mass index [BMI]30.0-30.9, adult 4 David Sifuentes. [address] [place] [address], [address], [place]. tel: [phone] OFFICE/OUTPA TIENT VISIT, [facility], [address] [place] [address], [id number] , [place] tel: [phone] CRISTIANO Foster f/u BP (chief complaint) Body mass index [BMI] 32.0-32.9, adultElevated blood pressure reading 3 David Sifuentes. [address] [place] [address], [address], [place]. tel: [phone] OFFICE/OUTPA TIENT VISIT, [facility], [address] [place] [address], [id number] , [place] tel: [phone] [facility] follow up (chief complaint)Lab draw (chief complaint) Hypothyroidism (acquired)Body mass index [BMI]30.0-30.9, adultRacing heart beatElevated blood pressure reading 3 West SUSHIL Sifuentes. [address] [place] [address], [address], [place]. tel: [phone] OFFICE/OUTPA TIENT VISIT, [facility], [address] [place] [address], [id number] , [place] tel: [phone] [facility] Wellness Visit (chief complaint)Lab Draw (chief complaint) Body mass index [BMI] 28.0-28.9, adultEncntr for general adult medical exam w/o abnormal findingsHypothyr oidism (acquired)Anxiet y with depressionMixed hyperlipidemiaEn counter for screening for HIVEncounter for hepatitis C screening test for low risk patientMusculosk eletal chest pain 3 David Sifuentes. [address] [place] [address], [address], [place]. tel: [phone] OFFICE/OUTPA TIENT VISIT, [facility], [address] [place] [address], [id number] , [place] tel: [phone] [facility] c/o muscle spasms (chief complaint) Body mass index [BMI]30.0-30.9, adultMuscle ache of extremity 3 West SUSHIL Sifuentes. [address] [place] [address], [address], [place]. tel: [phone] [facility], [address] [place] [address], [id number] , [place] tel: [phone] Dental Clinic filling (chief complaint) Encounter for screening for dental disorders 3 Qiana Cunningham. . tel: [phone] [facility], [address] [place] [address], [id number] , [place] tel: [phone] [facility] Adult prophy (chief complaint) Encounter for screening for dental disorders 3 Qiana Cunningham. . tel: [phone] OFFICE/OUTPA TIENT VISIT, [facility], [address] [place] [address], [id number] , [place] tel: [phone] [facility] Cristian F/U 6 Month (chief complaint)Lab Draw (chief complaint) Hypothyroidism (acquired)Histor y of Erb's palsyBody mass index [BMI] 26.0-26.9, adult 2 David Sifuentes. [address] [place] [address], [address], [place]. tel: [phone] [facility], [address] [place] [address], [id number] , [place] tel: [phone] [facility] prophy (chief complaint) Encounter for screening for dental disorders 2 Clari Delgado. [address] [place] [address], [address], [place]. tel: [phone] OFFICE/OUTPA TIENT VISIT, [facility], [address] [place] [address], [id number] , [place] tel: [phone] [facility] Cristian est care (chief complaint)labs (chief complaint) Hypothyroidism (acquired)Body mass index [BMI] 28.0-28.9, adultSchizophren ia, chronic conditionAnxiety with depressionMixed hyperlipidemiaSi alorrheaEncounte r to establish careVitamin D deficiency 2 David Sifuentes. [address] [place] [address], [address], [place]. tel: [phone] [facility], [address] [place] [address], [id number] , [place] tel: [phone] [facility] Prophy (chief complaint) Encounter for screening for dental disorders 1 Eb Lovell. [address] [place] [address], [id number] , [place]. tel: [phone] [facility], [address] [place] [address], [id number] , [place] tel: [phone] [facility] DN (chief complaint) Encounter for screening for dental disorders 1 Romeo Peres. [address] [place], [address], [place]. tel: [phone] OFFICE/OUTPA TIENT VISIT, [facility], [address] [place], [place], [id number] , [place] tel: [phone] [facility] [place] est care (chief complaint) Anxiety with depressionSchizo phrenia, chronic conditionDyslipi demia, goal LDL below 100Hypothyroidis m (acquired)Encoun ter to establish care with new doctor 0 Lindsay Ferrer. [address] [place] [address], [id number] , [place]. tel: [phone] [facility], [address] [place] [address], [id number] , [place] tel: [phone] Dental Clinic prophy (chief complaint) Encounter for screening for dental disorders 7 Jennifer Fox. [address] [place], [place], [id number] , [place]. tel: [phone] [facility], [address] [place] [address], [id number] , [place] tel: [phone] [facility] Clinic prophy (chief complaint) Encounter for screening for dental disorders 7 Taylor DMD Jinbo. [address] [place] [address], [address], [place]. tel: [phone] [facility], [address] [place] [address], [id number] , [place] tel: [phone] [facility] PROPHY (chief complaint) Encounter for screening for dental disorders 6 Gutierrez DMD Cassie. [address] [place] [address], [id number] , [place]. tel: [phone] [facility], [address] [place] [address], [id number] , [place] tel: [phone] [facility] prophy (chief complaint) Encounter for screening for dental disorders 6 [facility]. [address] [facility], [id number] , [place]. tel: [phone] [facility], [address] [facility] [place] [id number] , [place] tel: [phone] Dental Clinic Dental examination [facility]. [address] [facility] [place], [id number] , [place]. tel: [phone] [facility], [address] [facility] [place], [id number] , [place] tel: [phone] Dental Clinic prophy (chief complaint) Dental examination [facility]. [address] [facility] [place], [id number] , [place]. tel: [phone] [facility], [address] [facility] [place], [place], [id number] , [place] tel: [phone] Dental Clinic Dental examination [facility]. [address] [facility] [place], [place], [id number] , [place]. tel: [phone] [facility], [address] [facility] [place], [place], [id number] , [place] tel: [phone] [facility] Dental examination [facility]. [address] [facility] [place], [place], [id number] , [place]. tel: [phone] [facility], [address] [facility] [place], [place], [id number] , [place] tel: [phone] Dental Clinic Dental examination [facility]. [address] [facility] [place], [id number] , [place]. tel: [phone] [facility], [address] [place] [address] [place], [place], [id number] , [place] tel: [phone] Dental [facility] Dental examination [facility] August. [address] [place], [place], [id number] , [place]. tel: [phone] [facility], [address] [place], [place], [id number] , [place] tel: [phone] Dental Clinic Dental examination August. [address] [place], [place], [id number] , [place]. tel: [phone] Family History Family Member Type Diagnosis Age At Onset Problem Family history unknown Immunizations Vaccine Date Status Comments Fluarix/Flulaval administered Source: New Immunization Record COVID-19, mRNA, LNP-S, PF, 5 0 mcg/0.5 mL administered Source: Other Regist ry influenza, injectable, quadrivalent, preservative free administered Source: Other Regist ry COVID-19, mRNA, LNP-S, bivalent booster, PF, 30 mcg/0.3 mL dose administered Source: Other Regist ry Influenza, injectable, MDCK, preservative free, quadrivalent administered Source: Other Regist ry influenza, recombinant, quadrivalent,injectable, preservative free administered Source: Other Regist ry influenza, injectable, quadrivalent, preservative free administered Source: Other Regist ry influenza, recombinant, quadrivalent,injectable, preservative free administered Source: Other Regist ry influenza, injectable, quadrivalent, preservative free administered Source: Other Regist ry influenza, live, intranasal, quadrivalent administered Source: Other Regist ry influenza, injectable, quadrivalent administered Source: Other Regist ry influenza, injectable, quadrivalent, preservative free administered Source: Other Regist ry influenza, injectable, quadrivalent, preservative free administered Source: Other Regist ry Influenza, seasonal, injectable administered Source: Other Regist ry Payers Payer name Insurance type Covered libertarian ID Authoriza tidali(s) Medicare PPS MB [id number] Social History Type Description Quantity Date Captured Comments Alcohol Use Details Unknown Caffeine Use Details Unknown Tobacco Use Status No Information Smoking Status No Information Sex Female Sexual Orientation Straight or heterosexual Gender Identity Female Chief Complaint And Reason For Visit No Information Reason For Referral Reason For Referral No Information Plan Of Treatment Date Type Action Status Goal Unhealthy drug use screening . Due on due Goal Depression screening. Due on due Goal Hepatitis C screening. Due o n due Goal HPV. Due on due Goal Tdap. Due on due Goal PRAPARE ASSESSMENT. Due on O due Goal Influenza vaccine. Due on Oc due Goal RLP. Due on due Goal Tdap Vaccine. Due on 2024 due Goal Lipid panel. Due on due Goal Tdap. Due on due Goal Tdap Vaccine. Due on 2024 due Goal Depression screening. Due on due Goal Hepatitis C screening. Due o n due Goal Lipid panel. Due on due Goal Influenza vaccine. Due on Oc due Goal HPV. Due on due Goal RLP. Due on due Goal Unhealthy drug use screening . Due on due Goal PRAPARE ASSESSMENT. Due on O due Goal Lifestyle education regardin g diet completed Goal Hep A. Due on du e Goal Depression screening. Due on due Goal Influenza vaccine. Due on due Goal Unhealthy drug use screening . Due on due Goal Hepatitis C screening. Due o n due Goal Lipid panel. Due on due Goal RLP. Due on [...] Lifestyle education regardin g diet completed Goal Hepatitis C screening. Due o [...] Hep A. Due on du e Goal Hep A. Due on du e Goal HPV. Due on due Goal PRAPARE ASSESSMENT. Due on due Goal Influenza vaccine. Due on due Goal Hepatitis C screening. Due o n due Goal Tdap Vaccine. Due on 2024 due Goal Tdap. Due on due Goal Unhealthy drug use screening . Due on due Goal Depression screening. Due on due Goal RLP. Due on due Goal Lipid panel. Due on due Goal RLP. Due on due Goal Hepatitis C screening. Due o n due Goal Depression screening. Due on due Goal Unhealthy drug use screening . Due on due Goal Tdap Vaccine. Due on 2024 due Goal HPV. Due on due Goal Lipid panel. Due on due Goal PRAPARE ASSESSMENT. Due on due Goal Influenza vaccine. Due on due Goal Tdap. Due on due Goal Dietary management education , guidance, and counseling completed Goal Hep A. Due on du e Goal Unhealthy drug use screening . Due [...] due Goal HPV. Due on due Goal Dietary management education , guidance, and counseling completed Goal Hepatitis C screening. Due o n due Goal Tdap Vaccine. Due on 2024 due Goal Unhealthy drug use screening . Due on due Goal RLP. Due on due Goal PRAPARE ASSESSMENT. Due on J due Goal Influenza vaccine. Due on due Goal Depression screening. Due on due Goal Tdap. Due on due Goal HPV. Due on due Goal Lipid panel. Due on due Goal Dietary management education , guidance, and counseling completed Goal Lipid panel. [...] Vaccine. Due on 2024 due Goal Dietary management education , guidance, and counseling completed Goal Hep A. Due on du e Goal Influenza vaccine. Due on due Goal PRAPARE ASSESSMENT. Due on due Goal Tdap Vaccine. Due on 2023 due Goal Hepatitis C screening. Due o n due Goal Lipid panel. Due on due Goal Depression screening. Due on due Goal RLP. Due on due Goal Unhealthy drug use screening . Due on due Goal HPV. Due on due Goal Tdap. Due on due Goal Hep A. Due on du e Goal Depression screening. Due on due Goal Tdap. Due on due Goal Tdap Vaccine. Due on 2023 due Goal Hepatitis C screening. Due o n due Goal PRAPARE ASSESSMENT. Due on O due Goal Influenza vaccine. Due on Oc due Goal RLP. Due on due Goal Lipid panel. Due on due Goal HPV. Due on due Goal Unhealthy drug use screening . Due on due Goal Lipid panel. Due on due Goal Tdap. Due on due Goal Influenza vaccine. Due on Oc due Goal HPV. Due on due Goal Unhealthy drug use screening . Due on due Goal PRAPARE ASSESSMENT. Due on J due Goal RLP. Due on due Goal Depression screening. Due on due Goal Tdap Vaccine. Due on 2023 due Goal Hepatitis C screening. Due o n due Goal Hep A. Due on du e Goal PRAPARE ASSESSMENT. Due on J due Goal Hepatitis C screening. Due o n due Goal Unhealthy drug use screening . Due on due Goal Tdap. Due on due Goal RLP. Due on due Goal HPV. Due on due Goal Lipid panel. Due on due Goal Depression screening. Due on due Goal Tdap Vaccine. Due on 2023 due Goal Influenza vaccine. Due on due Goal Dietary management education , guidance, and counseling completed Goal Lipid panel. [...] Goal RLP. Due on due Goal Dietary management education , guidance, and counseling completed Goal Influenza vaccine. Due on due Goal Hepatitis C screening. Due o n due Goal Depression screening. Due on due Goal Unhealthy drug use screening . Due on due Goal Lipid panel. Due on due Goal Tdap. Due on due Goal Tdap Vaccine. Due on 2022 due Goal RLP. Due on due Goal HPV. Due on due Goal PRAPARE ASSESSMENT. Due on due Goal Dietary management education , guidance, and counseling completed Goal Hep A. Due on du e Goal Tdap Vaccine. Due on 2022 due Goal Influenza vaccine. Due on due Goal PRAPARE ASSESSMENT. Due on due Goal Depression screening. Due on due Goal Lipid panel. Due on due Goal Tdap. Due on due Goal RLP. Due on due Goal Dietary management education , guidance, and counseling completed Goal Tdap Vaccine. Due on 2022 due Goal Lipid panel. Due on due Goal PRAPARE ASSESSMENT. Due on due Goal Depression screening. Due on due Goal Tdap. Due on due Goal RLP. Due on due Goal Influenza vaccine. Due on due Goal Dietary management education , guidance, and counseling completed Goal PRAPARE ASSESSMENT. [...] on due Goal PRAPARE ASSESSMENT. Due on F due Goal PRAPARE ASSESSMENT. Due on N [...] due Goal Weight-reducing diet educati on completed Referral Ordered: MAMMOGRAM, SCREENING [id number], [id number] Selam Banegas History Of Present Illness Encounter Date Complaint History Of Prese nt Illness F/U Hyperlipidemia No Health iss ues to report today.Medications: Changed Buspirine dosage to match what patient is taking as well as adding Celexa.Flu: Given today//JWHupp RNAbove noted. Has no issues/concerns today. Denies any recent illnesses or hospitalizations. Continues seeing Dr Finn at [facility] for psychiatry. Med changes as above and states feeling well. No counseling services. flu- agrees todaymammogram- due Mar.WILDER Heard Medicare preventive The client h as not [...] ROBLES Wellness exam and lab draw [facility] for [facility] wellness exam and lab draw. Mammogram done 03/2024. Last pap done 10/2023. Denies other problems/concerns. Leanne Adame noted. Continues seeing Dr Finn at [facility] for psychiatry. No counseling services. Started buspirone again due to increase in anxiety. Feeling better now. States tries to watch diet and eat healthy. Does exercise daily. WILDER Heard Lab draw Lab draw from ft hand x 1 attempt, tolerated well, pressure dressing to area. Leanne Bennett RN Possible UTI Presents with c/ o possible UTI. Reports urgency, frequency, and pain. Symptoms for 3-4 weeks. States she has been drinking a lot cranberry juice, water and lemonade. Leanne Sabrina Adame noted. States symptom onset approx 1 [...] not had any recent hospitalizations. [facility] 10/2023WILDER Heard pe irma annual exam The client does not drink alcohol. Additional information: Patient is here to establish care. She has had a hysterectomy and they also took her ovaries. she does get some hot flashes, but they are starting to improve. Denies other MEDICAL MANAGER problems at this time. . lab draw Labs obtained fernandez ccessfully x1 attempt in L hand. Pt tolerated well. Voices no complaints at this time. Allan. office visit Pt here today fo r 6 month f/u and lab draw. Voices no other issues or concerns at this time. Allan. Above noted. Here for routine wellness exam with lab draw and med refills.Continues under care with Dr Keen, psychiatry- no changes with meds. No counseling services. Has not had any recent hospitalizations. [facility] [place] [facility]; had full hyster age 41yrs was [...] increased anxiety. Here today to recheck symptoms. [facility] psychiatry provider Dr Bailey recently increased [...] feels anxious. Does continue under care with [facility] psychiatry. Denies any change in medications. WILDER Heard May-26-2023 Lab Draw RN attempted lab draw x1 [...] pain relief measures. Continues under psychiatry with [facility]- Dr Iqbal every 3 months, took off trazodone and hydroxyzine [facility] [place]; last seen 1 year ago; total hystJWest, MERCHANDISE CLERK c/o muscle spasms Pt here with c [...] statin use. Has been taking Atorvastatin since 2017. States at the time she was eating very unhealthy. Denies any other issues/concerns. Félix, MERCHANDISE CLERK filling filling Adult prophy Adult Prophy Lab [...] hospitalizations. [facility]s [facility]. Is interested in establishing care for woman's health; does not want to drive to [place] for exam any longer. Will call to make appt later. Influenza and COVID vaccine obtained approx 1 month ago. Félix MERCHANDISE CLERK prophy prophy labs Lab drawn from l t AC x1 attempt successful.Rand Lopez RN est care Presents for est ablishing care. Was seeing Dr. Browning before but would not like to continue with her anymore. Sees the health dept for dental. Se[facility] a [facility] [facility] in [place]. States she has already seen MEDICAL MANAGER this year. States she had 2020 mammogram [place] [facility]. Needs medication refills on all medications not [...] October, normally sees every 3 months. Has family preservation caseworker, Jacinda. Also participates in group therapy at [facility]. Dx with schizoaffective disorder, anxiety, depression. Previous [...] within [facility] through them, has orderFélix, MERCHANDISE CLERK Prophy DN DN est care Pt here to [facility]. Pt denies any issues or concerns. Hilda RN Pt's last visit with PCP Isabell Herndon was 02/01/20.Last labs- 03/17/[address] Brown. States this summer her cholesterol and thyroid were checked after a visit and they were both in good range at that time.Psych physician- Denies any recent medication changes. Specialists: NONEADOPTED, family history unknown.Last Eye Exam-Dentist- switched from [facility] to [facility]iy[facility] Rodrig[facility]. but cancelled recent appointment as she's afraid of Covi-19 exposure. Denies any pain, infection, broken teeth complaints, just some discoloration on front bottom between teeth. She does drink a lot of tea. 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 History of hysterectomy. Currently lives with elderly parents.Will need refills on levothyroxine, fenofibrate, atorvastatin. prophy prophy PROPHY prophy has flu shot prophy Functional Status Date Functional Assessmen t No Information Instructions Date Instruction Additional Infor emery 1. Complete mammogra m screening next month Related to Breast cancer screening by mammogram 1. Continue taking m etformin2. Decrease conc sweets and excessive carbohydrates.3. Stop/decrease smoking Related to Prediabetes Lifestyle education regarding di et Related to Body mass index [BMI] 30.0-30.9, adult Giving encouragement to exercise Related to Body mass index [BMI] 30.0-30.9, adult 1. F/U annually for wellness vis it [...] Continue with erica atment plan as per [facility] counseling and recovery2. If you have any thoughts of harming yourself or others; go to the ER or: -Call (available 10/12)-Crisis Text Line (available 10/12) text 4HOPE to [phone]-Csnzztlmw Hope Line (available 8a-Midnight) Call [phone] ([phone]) Related to Anxiety with depression 1. Labs [...] Body mass index [BMI] 30.0-30.9, adult 1. Checking A1C leve l2. Decrease conc sweets and excessive carbohydrates.3. Stop/decrease smoking Related to Prediabetes 1. Continue with erica atment plan as per [facility] counseling and recovery2. If you have any thoughts of harming yourself or others; go to the ER or: -Call (available 10/12)-Crisis Text Line (available 10/12) text 4HOPE to [phone]-Ysbmljjus Hope Line (available 8a-Midnight) Call [phone] ([phone]) Related to Anxiety with depression 1. Continue daily me ds2. Make dietary changes3. Increase exercise4. Stop smoking/avoid smoke5. Lipid panel today Related to Mixed hyperlipidemia 1. Labs obtained [...] index [BMI] 32.0-32.9, adult 1. Labs obtained gianluca noyola, will call [...] of breath Related to Musculoskeletal chest pain May-26-2023 1. F/U annually for wellness visit2. Labs [...] Continue with erica atment plan as per [facility] counseling and recovery2. Call hotline number at [...] Encounter to establish care 1. Labs obtained gianluca noyola, anticipate call within 1-2 weeks Related to Vitamin D deficiency 1. Continue with erica atment plan as per [facility] counseling and recovery2. Call hotline number at [...]
[2025-04-19 13:23] LABS: Hematocrit 43.0 % (36.0-48.0); Hemoglobin 14.1 g/dL (12.0-16.0); Immature Granulocytes Abs Auto 0.02 10^3/uL (0.00-0.03); Immature Granulocytes Pct Auto 0.3 % (0.0-0.5); Lymphocytes Absolute Auto 2.2 10^3/uL (1.2-3.8); Mean Corpuscular HGB Conc 32.8 g/dL (29.9-35.2); Mean Corpuscular Hemoglobin 29.4 pg (26.7-34.0); Mean Corpuscular Volume 89.6 fL (81.0-99.0); Platelet Count 312 10^3/uL (150-450); Red Blood Count 4.80 10^6/uL (4.20-5.40); White Blood Count 6.1 10^3/uL (4.0-11.0)
== END 2025-04-19 12:41 | disposition home or self-care (01) ==
LOC: LAB 12:42
PROVIDERS: PCP Nurse Practitioner; Visit Provider Psychiatry & Neurology Psychiatry
DX: F25.0 Schizoaffective disorder, bipolar type (principal)
CPT/HCPCS: 36415; 85025